=== PATIENT | male | born 1975 | race Caucasian/White ===

== ENCOUNTER 2018-07-26 21:29 | Emergency (ER) | payer OTHER ==
--- NOTE | 2018-07-26 21:32 | PDOC ---
Rapid Medical Evaluation Time Seen by Provider: 07/26/18 21:32 Medical Evaluation: Allergies Allergy/AdvReac Type Severity Reaction Status Date / Time No Known Allergies Allergy Verified 05/08/14 18:19 07/26/18 21:32 I have performed a brief in-person evaluation of this patient. The patient presents with a chief complaint of: Elevated BP today at home, was 164/110. H/o HTN, on meds and compliant per pt. Was having tingling to chest/ LUE today and so took BP at home. No recent change to meds Pertinent physical exam findings:Well ching and in NAD w/ BP of 157/91 I have ordered the following:ekg The patient will proceed to the ED for further evaluation. 07/26/18 21:33 Discharge Disposition - Diagnosis Elevated blood pressure reading - Referrals - Patient Instructions - Post Discharge Activity
[2018-07-26 21:35] VITALS: PULSE 76; TEMP 98.4; BMI 28.0
--- NOTE | 2018-07-26 21:48 | PDOC ---
History of Present Illness - General Chief Complaint: Blood Pressure Problem Stated Complaint: HIGH BLOOD PRESURE Time Seen by Provider: 07/26/18 21:32 - History of Present Illness Initial Comments: 43 year old male with two years of chest pain on and off previously evaluated by his PCP and a few ED visits with negative workup presenting with central chest pain and occasional left arm paresthesias for the past few days. States that he checked his pressure as well and it was elevated. He has had these chest pains with elevated blood pressure before. Denies any nausea, vomiting, SOB, fevers, chills, or other symptoms. 07/26/18 22:38 Past History - Past Medical History Allergies/Adverse Reactions: Allergies Allergy/AdvReac Type Severity Reaction Status Date / Time No Known Allergies Allergy Verified 07/26/18 21:33 Home Medications: Ambulatory Orders Amlodipine Besylate 5 mg PO DAILY 07/26/18 Asthma: Yes COPD: No HTN: Yes - Suicide/Smoking/Psychosocial Hx Smoking History: Never smoked Have you smoked in the past 12 months: No Hx Alcohol Use: No Drug/Substance Use Hx: No Substance Use Type: None Review of Systems - Review of Systems Constitutional: No: Chills, Diaphoresis, Fever HEENTM: No: Blurred Vision, Tearing Respiratory: No: Cough, Shortness of Breath Cardiac (ROS): Yes: Chest Pain ABD/GI: No: Diarrhea, Nausea, Vomiting : No: Dysuria, Discharge, Frequency Integumentary: No: Lesions, Lumps, Pallor Neurological: Yes: Paresthesia. No: Numbness Psychiatric: No: Anxiety, Depression Hematologic/Lymphatic: No: Anemia, Blood Clots, Easy Bleeding, Lymph Node Abnormalities *Physical Exam - Vital Signs Last Vital Signs Temp Pulse Resp BP Pulse Ox 98.4 F 76 18 157/91 98 07/26/18 21:33 07/26/18 21:33 07/26/18 21:33 07/26/18 21:33 07/26/18 21:33 - Physical Exam General Appearance: Yes: Nourished, Appropriately Dressed. No: Apparent Distress HEENT: positive: EOMI, BHAVESH, Normal ENT Inspection, Normal Voice Neck: positive: Trachea midline, Normal Thyroid, Supple. negative: Tender, Rigid Respiratory/Chest: positive: Lungs Clear, Normal Breath Sounds. negative: Chest Tender, Respiratory Distress, Accessory Muscle Use Cardiovascular: positive: Regular Rhythm, Regular Rate Gastrointestinal/Abdominal: positive: Normal Bowel Sounds, Flat, Soft. negative : Tender Lymphatic: negative: Adenopathy, Tenderness Musculoskeletal: positive: Normal Inspection. negative: Decreased Range of Motion Extremity: positive: Normal Capillary Refill, Normal Inspection, Normal Range of Motion. negative: Tender, Pelvis Stable Integumentary: positive: Normal Color, Dry, Warm Neurologic: positive: Fully Oriented, Alert, Normal Mood/Affect, Normal Response , Motor Strength 5/5 Moderate Sedation - Procedure Monitoring Vital Signs: Procedure Monitoring Vital Signs Temperature 98.4 F 07/26/18 21:33 Pulse Rate 76 07/26/18 21:33 Respiratory Rate 18 07/26/18 21:33 Blood Pressure 157/91 07/26/18 21:33 O2 Sat by Pulse Oximetry (%) 98 07/26/18 21:33 ED Treatment Course - LABORATORY CBC & Chemistry Diagram: 07/26/18 22:50 07/26/18 22:50 Medical Decision Making - Medical Decision Making 43 year old male with low risk chest pain without EKG changes or lab abnormalities. Pain better with Maalox, Pepcid and toradol. EKG demonstrating rate 68, VT 178, QRS 106, QTc 427, normal axis with S waves in V1-V3 with TWI in III and flattening in AVF all unchanged compared to previous EKG in03/2014. Will DC with PCP and cardiology follow up. 07/26/18 23:11 *DC/Admit/Observation/Transfer Diagnosis at time of Disposition: Elevated blood pressure reading, Chest pain, atypical - Discharge Dispostion Disposition: HOME Condition at time of disposition: Improved Decision to Admit order: No - Referrals Referrals: ON STAFF,NOT [Primary Care Provider] - [facility] [place] [Provider Group] - Patient Instructions Printed Discharge Instructions: DI for High Blood Pressure, DI for Atypical Chest Pain Additional Instructions: Please follow up with your pcp to make a cardiology appointment or you can use our [facility] clinic as well if you don't have a PCP. Please return to the ED if you have any new or concerning symptoms. - Post Discharge Activity
[2018-07-26] MEDS ORDERED: MAG HYDROX/AL HYDROX/SIMETH -MYLANTA- ORAL SUSPENSION PO ONE (22:43)
[2018-07-26] MEDS ORDERED: RANITIDINE HCL 150 MG/10 ML UNIT-DOSE PO ONE (22:43)
[2018-07-26] MEDS ORDERED: RANITIDINE HCL 150 MG TABLET (FP) ONE (22:45)
[2018-07-26] MEDS ORDERED: MAG HYDROX/AL HYDROX/SIMETH 30 ML UNIT-DOSE CUP ONE (22:46)
[2018-07-26 22:59] LABS: BASO % 0.6 % (0-2.0); EOS % 1.5 % (0-4.5); HEMOGLOBIN 16.1 GM/dL (11.7-16.9); LYMPH % 30.1 % (8-40); MCH 32.5 pg (25.7-33.7); MEAN CELL VOLUME 92.8 fl (80-96); MEAN PLT VOLUME 8.8 fl (7.5-11.1); MONO % 9.1 % (3.8-10.2); NEUT % 58.7 % (42.8-82.8); PLATELET COUNT 207 K/MM3 (134-434); RBC 4.96 M/mm3 (4.00-5.60); RDW 13.8 % (11.9-15.9); WHITE BLOOD COUNT 11.5 K/mm3 (4.0-10.0)
[2018-07-26 23:24] LABS: ALBUMIN 4.1 g/dl (3.4-5.0); ALK PHOS 60 U/L (45-117); ANION GAP 6 MMOL/L (8-16); BILIRUBIN,TOTAL 0.2 mg/dL (0.2-1); BLOOD UREA NITROGEN 17 mg/dL (7-18); CALCIUM 8.6 mg/dL (8.5-10.1); CHLORIDE 104 mmol/L (98-107); CO2 28 mmol/L (21-32); CREATININE 1.2 mg/dL (0.55-1.3); GLUCOSE,RANDOM 91 mg/dL (74-106); POTASSIUM 4.1 mmol/L (3.5-5.1); SGOT/AST 19 U/L (15-37); SGPT/ALT 36 U/L (13-61); SODIUM 138 mmol/L (136-145); TOT PROT 7.7 g/dl (6.4-8.2)
--- NOTE | 2018-07-26 23:39 | PDOC ---
Attending Attestation - Resident Resident Name: DmitryMonishaandrew - ED Attending Attestation I have performed the following: I have examined & evaluated the patient, The case was reviewed & discussed with the resident, I agree w/resident's findings & plan - HPI HPI: 07/26/18 23:34 Mr. Shirley is a 43 year old male, with a past medical history significant for HTN, presents with constant central chest pain beginning earlier today. The patient states he has had intermittent central chest pain for the past 3 days, described as burning sensation. However, today the chest pain has become constant prompting the ED visit. The patient also endorses intermittent left arm paresthesias. The patient states his chest pain has been associated with elevated blood pressure in the past, noted his BP earlier today to be elevated as well.. 07/26/18 23:34 - Physicial Exam PE: 07/26/18 23:34 NAD, well appearing, PERRL, EOMI, MMM, nl conjunctiva, anicteric; neck supple. lungs clear, RRR, abdomen soft nontender. WISEMAN x4, no focal neuro deficits. No peripheral edema. normal color for ethnicity, WWP. - Medical Decision Making 07/26/18 23:33 See HPI for details DDx chest pain: ACS, coronary vasospasm, NSTEMI, arrhythmia, unstable angina, PE , dissection, PUD, esophageal spasm, GERD, gastritis, costochondritis, pneumonia , pleurisy, pericarditis/myocarditis. dehydration, electrolyte/metabolic derangements. clinically doubt PE or dissection with history and exam. PERC's neg, so doubt PE. Vital signs reviewed, mildly hypertensive; NAD Prior notes reviewed, including admissions, discharges and consultations. laboratory results and imaging reviewed, basic labs and lytes wnl, notable for neg trop, reassuring. EKG normal sinus rhythm, no interval abnormalities, narrow QRS, ST and T wave segments and morphology normal. Nonspecific T wave abnormalities in III, AVF - similar to prior EKGs. ED course: no acute events, comfortable, given GI cocktail with relief. one trop sufficient as this is ongoing issue and doubt cardiac with neg value. ECG nonischemic, similar to old EKGs. burning sensation, improving, reassuring signs. given GI cocktail with relief has PCP, told to f/u and to encourage cards eval as outpatient for the stress testing that was discussed previously. Dispo: Pt informed of my clinical impression, treatment recommendations and disposition plan. All questions answered to patient's satisfaction and expressed understanding and comfort with this. Reasons for returning to the ED sooner discussed with the patient otherwise, follow up with primary care physician. At the time of discharge, the patient is alert, clinically improved, tolerating po and verbalizes understanding of instructions. Patient does not suffer from an acute life-threatening medical condition at this time he is safe for outpatient follow-up. 07/26/18 23:38 07/27/18 02:00
[2018-07-26] MEDS ORDERED: KETOROLAC TROMETHAMINE 30 MG/1 ML VIAL IM ONE (23:49)
[2018-07-26] MEDS ORDERED: KETOROLAC TROMETHAMINE 30 MG/1 ML VIAL ONE (23:55)
[2018-07-27 00:02] VITALS: BP 157/97
--- NOTE | 2018-07-27 22:03 | EKG ---
Test Reason : Blood Pressure : / mmHG Vent. Rate : 068 BPM Atrial Rate : 068 BPM P-R Int : 178 ms QRS Dur : 106 ms QT Int : 402 ms P-R-T Axes : 007 048 003 degrees QTc Int : 427 ms NORMAL SINUS RHYTHM POSSIBLE ANTERIOR INFARCT , AGE UNDETERMINED ABNORMAL ECG WHEN COMPARED WITH ECG OF 09-MAY-2014 10:03, NO SIGNIFICANT CHANGE WAS FOUND Confirmed by ANDERS NOLAND MD ([id number]) on 07/27/2018 10:03:16 PM Referred By: Confirmed By:ANDERS NOLAND MD
== END 2018-07-27 00:02 | disposition home or self-care (01) ==
LOC: JER 21:29
PROC: 3E0233Z Introduction of Anti-inflammatory into Muscle, Percutaneous Approach (ICD-10-PCS; principal; 2018-07-26)
DX: I10 Essential (primary) hypertension (principal); R07.9 Chest pain, unspecified
CPT/HCPCS: 36415; 71045-TC-FY; 80053; 84484; 85025; 93005; 93010; 96372; 99282-25

== ENCOUNTER 2018-07-28 20:40 | Emergency (ER) | payer OTHER ==
[2018-07-28 20:52] VITALS: PULSE 76; TEMP 98.5; BMI 28.0
--- NOTE | 2018-07-28 21:43 | PDOC ---
History of Present Illness - General Chief Complaint: Blood Pressure Problem Stated Complaint: HIGH BLOOD PRESSURE Time Seen by Provider: 07/28/18 21:43 Past History - Past Medical History Allergies/Adverse Reactions: Allergies Allergy/AdvReac Type Severity Reaction Status Date / Time No Known Allergies Allergy Verified 07/26/18 21:33 Home Medications: Ambulatory Orders Amlodipine Besylate 5 mg PO DAILY 07/26/18 Asthma: Yes COPD: No HTN: Yes - Suicide/Smoking/Psychosocial Hx Smoking History: Never smoked Have you smoked in the past 12 months: No Information on smoking cessation initiated: No Hx Alcohol Use: No Drug/Substance Use Hx: No Substance Use Type: None *Physical Exam - Vital Signs Last Vital Signs Temp Pulse Resp BP Pulse Ox 98.5 F 76 20 169/107 H 98 07/28/18 20:45 07/28/18 20:45 07/28/18 20:45 07/28/18 20:45 07/28/18 20:45 Moderate Sedation - Procedure Monitoring Vital Signs: Procedure Monitoring Vital Signs Temperature 98.5 F 07/28/18 20:45 Pulse Rate 76 07/28/18 20:45 Respiratory Rate 20 07/28/18 20:45 Blood Pressure 169/107 H 07/28/18 20:45 O2 Sat by Pulse Oximetry (%) 98 07/28/18 20:45 *DC/Admit/Observation/Transfer - Referrals Referrals: Duke Rowley [Primary Care Provider] - - Patient Instructions - Post Discharge Activity
--- NOTE | 2018-07-28 22:14 | PDOC ---
Attending Attestation - HPI HPI: 07/28/18 23:46 The patient is a 43 year old male, with a significant past medical history of HTN, who presents to the emergency department today complaining of 3 days intermittent, burning, chest pain beginning this morning. The patient states today the chest pain is now constant. The patient notes left arm tingling. The patient denies shortness of breath, headache and dizziness. Denies fever, chills, nausea, vomit, diarrhea and constipation. Denies dysuria, frequency, urgency and hematuria. Allergies: NKA Social history: No reported PCP: Dr. Rowley - Physicial Exam PE: 07/28/18 23:57 GENERAL: Well-appearing, well-nourished. No apparent distress. HEENT: Normocephalic, atraumatic. PERRL, EOM intact. No JVD. CARDIOVASCULAR: Normal S1, S2. Regular rate and rhythm. PULMONARY: Clear to auscultation bilaterally. ABDOMEN: Soft, non-distended, non-tender. EXTREMITIES: Normal ROM in all four extremities. No gross deformities. SKIN: Warm, dry. No rash NEUROLOGICAL: No focal neurological deficits. <Tricia Gurrola - Last Filed: 07/28/18 23:57> - Resident Resident Name: Kem Ritchie - ED Attending Attestation I have performed the following: I have examined & evaluated the patient, The case was reviewed & discussed with the resident, I agree w/resident's findings & plan, Exceptions are as noted - Medical Decision Making 07/29/18 00:30 pt s ekg is NSR @ 66 bpm, no wt elevation or depression, there is inverted t wave in III, first trop is negative 07/29/18 00:43 pt was concerned because his blood pressure was elevated again today and he had left shoulder pain that resolved after thirst minutes 07/29/18 01:31 we did not give him any additional meds for the elevated BP and it came down to 131/89 -he had 2 negative troponins -he has no headache and no symptoms at thi time and will be discharged home -his PCP is in [facility] and he will follow up with him this week <Cindi Suazo - Last Filed: 07/29/18 01:36> Attestations - Attestations 07/28/18 23:46 Documentation prepared by Tricia Gurrola, acting as medical interpreter for Cindi Suazo MD. <Tricia Gurrola - Last Filed: 07/28/18 23:57>
[2018-07-28 22:23] LABS: BASO % 0.5 % (0-2.0); HEMATOCRIT 44.9 % (35.4-49); HEMOGLOBIN 15.7 GM/dL (11.7-16.9); LYMPH % 19.5 % (8-40); MCH 32.7 pg (25.7-33.7); MCHC 34.9 g/dl (32.0-35.9); MEAN CELL VOLUME 93.5 fl (80-96); MEAN PLT VOLUME 8.9 fl (7.5-11.1); MONO % 7.4 % (3.8-10.2); NEUT % 71.6 % (42.8-82.8); PLATELET COUNT 200 K/MM3 (134-434); RDW 13.9 % (11.9-15.9); WHITE BLOOD COUNT 12.6 K/mm3 (4.0-10.0)
[2018-07-28 22:42] LABS: ALBUMIN 4.4 g/dl (3.4-5.0); ALK PHOS 58 U/L (45-117); ANION GAP 9 MMOL/L (8-16); BILIRUBIN,TOTAL 0.3 mg/dL (0.2-1); BLOOD UREA NITROGEN 19 mg/dL (7-18); CHLORIDE 101 mmol/L (98-107); CO2 31 mmol/L (21-32); GLUCOSE,RANDOM 97 mg/dL (74-106); N-TERMINAL BNP < 5.0 pg/ml (5-125); POTASSIUM 3.9 mmol/L (3.5-5.1); SGOT/AST 12 U/L (15-37); SGPT/ALT 32 U/L (13-61); SODIUM 140 mmol/L (136-145); TOT PROT 7.7 g/dl (6.4-8.2)
--- NOTE | 2018-07-28 22:47 | PDOC ---
History of Present Illness - General Chief Complaint: Blood Pressure Problem Stated Complaint: HIGH BLOOD PRESSURE History Source: Patient Exam Limitations: No Limitations - History of Present Illness Initial Comments: 07/28/18 22:18 43 yo male pmh of HTN presents to the ED for elevated blood pressure presents to the ED with elevated BP today. Of note, pt came to the ED 2 days ago with CP and elevated BP, trops neg and ekg normal. Pt states today while eating dinner he noted sudden onset blurry vision and OHARA with left shoulder pain, checked his pressure and found to be 180s/110s. The blurry vision and OHARA subsided 30 min after onset, currently patient has no complaints other than left shoulder pain, denies CP, SOB, abdominal pain, back pain, new stress at home, current OHARA, LOC, N/V/F/C, weakness or sensory changes on 1 side of his body. Pt has not followed up with PCP since last ED visit to discuss elevated BP. Past History - Past Medical History Allergies/Adverse Reactions: Allergies Allergy/AdvReac Type Severity Reaction Status Date / Time No Known Allergies Allergy Verified 07/26/18 21:33 Home Medications: Ambulatory Orders Amlodipine Besylate 5 mg PO DAILY 07/26/18 Asthma: Yes COPD: No HTN: Yes - Suicide/Smoking/Psychosocial Hx Smoking History: Never smoked Have you smoked in the past 12 months: No Information on smoking cessation initiated: No Hx Alcohol Use: No Drug/Substance Use Hx: No Substance Use Type: None Review of Systems - Review of Systems Constitutional: No: Chills, Fever HEENTM: Yes: Other (resolved OHARA). No: Blurred Vision (resolved) Respiratory: No: Shortness of Breath, Wheezing Cardiac (ROS): Yes: Other (elevated BP at home). No: Chest Pain, Edema, Lightheadedness, Palpitations ABD/GI: No: Constipated, Diarrhea, Nausea, Vomiting : No: Frequency, Flank Pain Musculoskeletal: No: Back Pain, Muscle Weakness Neurological: No: Headache (resolved), Numbness, Paresthesia, Weakness *Physical Exam - Vital Signs Last Vital Signs Temp Pulse Resp BP Pulse Ox 98.5 F 76 20 169/107 H 98 07/28/18 20:45 07/28/18 20:45 07/28/18 20:45 07/28/18 20:45 07/28/18 20:45 - Physical Exam General Appearance: Yes: Nourished, Appropriately Dressed. No: Apparent Distress HEENT: positive: EOMI, BHAVESH. negative: Photophobia Neck: positive: Supple Respiratory/Chest: positive: Lungs Clear, Normal Breath Sounds. negative: Crackles, Rales, Rhonchi, Stridor, Wheezing Cardiovascular: positive: Regular Rhythm, Regular Rate, S1, S2. negative: Edema , JVD, Murmur Vascular Pulses: Dorsalis-Pedis (R): 4+, Doralis-Pedis (L): 4+ Gastrointestinal/Abdominal: positive: Flat, Soft. negative: Pulsatile Mass, Distended, Guarding, Rebound, Tenderness Extremity: positive: Normal Capillary Refill, Normal Inspection Integumentary: positive: Normal Color, Dry, Warm Neurologic: positive: health record technician II-XII NML intact, Fully Oriented, Alert, Normal Mood/ Affect, Normal Response, Motor Strength 5/5, Finger to Nose (normal). negative : Facial Droop, Sensory Deficit, Confused, Disoriented Moderate Sedation - Procedure Monitoring Vital Signs: Procedure Monitoring Vital Signs Temperature 98.5 F 07/28/18 20:45 Pulse Rate 76 07/28/18 20:45 Respiratory Rate 20 07/28/18 20:45 Blood Pressure 169/107 H 07/28/18 20:45 O2 Sat by Pulse Oximetry (%) 98 07/28/18 20:45 ED Treatment Course - LABORATORY CBC & Chemistry Diagram: 07/28/18 21:46 07/28/18 22:10 Medical Decision Making - Medical Decision Making 07/28/18 23:59 43 yo male presents to the ED after finding elevated BP at home with associated OHARA, blurred vision in both eyes and left shoulder pain which resolved 30 min after episode. Pt resting comfortably in bed, NAD, no current complaints, neuro exam normal, no CP or SOB EKG NSR, no st changes Labs: CBC and CMP wnl 1st trop neg, second pending BP on arrival WNL and recheck at bedside 131/89 Pt recently seen in the ED for elevated pressure with negative cardiac work up Will send 2nd trop 07/29/18 01:19 2nd trop negative Pt continues to rest comfortably without complaints and BP WNL DC home with PCP follow up *DC/Admit/Observation/Transfer Diagnosis at time of Disposition: Elevated blood pressure reading - Discharge Dispostion Disposition: HOME Condition at time of disposition: Good Decision to Admit order: No - Referrals Referrals: Duke Rowley [Primary Care Provider] - - Patient Instructions Printed Discharge Instructions: DI for High Blood Pressure, How to Monitor Your Blood Pressure at Home Additional Instructions: Please see your Primary Doctor within the next 48 hours to discuss multiple elevated blood pressure readings at home. Continue taking your medications as prescribed. Return to the ER for new or concerning symptoms including but not limited to: severe chest pain, severe headaches, weakness or sensory changes on 1 side of your body. Thank you - Post Discharge Activity
[2018-07-28 23:55] VITALS: BP 131/89
--- NOTE | 2018-07-29 09:42 | EKG ---
Test Reason : Blood Pressure : / mmHG Vent. Rate : 066 BPM Atrial Rate : 066 BPM P-R Int : 164 ms QRS Dur : 092 ms QT Int : 392 ms P-R-T Axes : 013 053 002 degrees QTc Int : 410 ms NORMAL SINUS RHYTHM NORMAL ECG WHEN COMPARED WITH ECG OF 26-JUL-2018 22:52, NO SIGNIFICANT CHANGE WAS FOUND Confirmed by ANDERS NOLAND MD ([id number]) on 07/29/2018 9:42:02 AM Referred By: Confirmed By:ANDERS NOLAND MD
== END 2018-07-29 01:37 | disposition home or self-care (01) ==
LOC: JER 20:40
DX: I10 Essential (primary) hypertension (principal); Z87.19 Personal history of other diseases of the digestive system
CPT/HCPCS: 36415; 71046-TC-FY; 80053; 82550; 83880; 84484; 85025; 93005; 93010; 99283-25

== ENCOUNTER 2020-03-22 00:16 | Inpatient (IN) | payer OTHER ==
--- OUTSIDE RECORDS SUMMARY | 2020-03-22 00:42 | XMS ---
:1975 Author Organization [facility] Support Name Relationship Address Phone [employer] Unavailable [address] [place] [address] [address]AQU[address] [facility] [place] [address] Re-disclosure Warning The records that you are about to access may contain information from federally- assisted alcohol or drug abuse programs. If such information is present, then the following federally mandated warning applies: This information has been disclosed to you from records protected by federal confidentiality rules (42 CFR part 2). The federal rules prohibit you from making any further disclosure of this information unless further disclosure is expressly permitted by the written consent of the person to whom it pertains or as otherwise permitted by 42 CFR part 2. A general authorization for the release of medical or other information is NOT sufficient for this purpose. The Federal rules restrict any use of the information to criminally investigate or prosecute any alcohol or drug abuse patient.The records that you are about to access may contain highly sensitive health information, the redisclosure of which is protected by Article 27-F of the [facility] Public Health law. If you continue you may haveaccess to information: Regarding HIV / AIDS; Provided by facilities licensed or operated by the [facility] Office of Mental Health; or Provided by the [facility] Office for People With Developmental Disabilities. If such information is present, then the following [facility] mandated warning applies: This information has been disclosed to you from confidential records which are protected by state law. State law prohibits you from making any further disclosure of this information without the specific written consent of the person to whom it pertains, or as otherwise permitted by law. Any unauthorized further disclosure in violation of state law may result in a fine or chcf sentence or both. A general authorization for the release of medical or other information is NOT sufficient authorization for further disclosure. Insurance Providers Payer name Policy type Policy ID Covered Covered republican's Policy P mita / Coverage republican ID relationship to Garza Inf ormation type garza TAVO [id number] 400 [employer] NON CAP
[2020-03-22 00:44] VITALS: BMI 28.6
[2020-03-22] MEDS ORDERED: ACETAMINOPHEN 1000 MG/100 ML VIAL (NON FORMULARY) IVPB ONE (00:53)
--- NOTE | 2020-03-22 00:53 | PDOC ---
Attending Attestation - Resident Resident Name: ShimaJean Claude - ED Attending Attestation I have performed the following: I have examined & evaluated the patient, The case was reviewed & discussed with the resident, I agree w/resident's findings & plan - HPI HPI: 03/22/20 01:06 PT AND HIS COME WITH FEVER; RETURNED FROM [place] 19 DAYS AGO HE COMPLAINS OF GENERALIZED WEAKNESS AND FEVER AND PAINS - Physicial Exam PE: 03/22/20 02:31 PT IS FEBRILE HEENT REVEALS NYSTAGMUS WHEN PT LOOKS TO THE RIGHT SIDE. NCAT PERRLA RIGHT SIDE OF LUNG DECREASED BREATH SOUNDS ABD SOFT NT ND NO SWELLING OF LEGS NO FLANK PAIN PT HAS NORMAL SENSORIMOTOR NEURO EXAM - Medical Decision Making 03/22/20 02:31 PT HAS MULTILOBAR PNEUMONIA; WE WILL ADMIT FOR BLOOD CULTURE AND SENSITIVITY RESULTS AND IV THERAPEUTICS FLU NEGATIVE 03/22/20 02:56 PT HAS NORMAL LABS OTHER THAN C-RP AND D DIMER 03/22/20 02:57 FEVER CAME DOWN HE IS 98.6F NOW Discharge - Discharge Information Problems reviewed: Yes Clinical Impression/Diagnosis: Pneumonia Qualifiers: Pneumonia type: due to unspecified organism Laterality: right Lung location: unspecified part of lung Qualified Code(s): J18.9 - Pneumonia, unspecified organism Condition: Fair - Follow up/Referral - Patient Discharge Instructions - Post Discharge Activity
[2020-03-22] MEDS ORDERED: SODIUM CHLORIDE IV ONE (00:55)
[2020-03-22] MEDS ORDERED: ACETAMINOPHEN INJECTION 100 ML IVPB ONE (01:02)
--- NOTE | 2020-03-22 01:08 | PDOC ---
History of Present Illness - General Chief Complaint: SIRS, Suspected/Possible Stated Complaint: FEVER Time Seen by Provider: 03/22/20 00:43 - History of Present Illness Initial Comments: 03/22/20 01:22 44 yo male with pmh htn and asthma presents to ED for flu like sxs for the past 6 days. Pt has recently been to [place] with his who is also sick. Pt explains he was having nose congestoin and chills starting 6 days ago and then about 4 days ago started feeling fevers, cough and SOB. Pt went to [facility] 4 days ago and had rapid covid which was negative waiting for other COVID results. Pt explains he has associated generalized weakness, lightheadedness, nonproductive cough, SOB, and midsternal chest pain worse with deep breath and cough. Pt does have mild headache but no rigid neck or AMS. PT does also have decreased taste and smell. Pt denies n/v/d/c, dysuria, urinary frequency, or rash. Pt did recently travel to [place] about 19 days ago but no calf tenderness and does not believe he has any sick contacts. PMH: htn asthma meds: denies allergies: denies Social: social alcohol; dneis tobacco and drugs PCP: Dr. Rowley Number: [phone] Past History - Medical History Allergies/Adverse Reactions: Allergies Allergy/AdvReac Type Severity Reaction Status Date / Time No Known Allergies Allergy Verified 03/22/20 00:45 Home Medications: Ambulatory Orders Amlodipine Besylate 5 mg PO DAILY 07/26/18 Asthma: Yes COPD: No HTN: Yes - Psycho-Social/Smoking History Smoking History: Never smoked Have you smoked in the past 12 months: No Information on smoking cessation initiated: No - Substance Abuse Hx (Audit-C & DAST Scrn) How often the patient has a drink containing alcohol: Monthly or less Number of drinks the patient has on a typical day: 1 or 2 How often the patient has six or more drinks on one occasion: Never Score: In Men: 4 or > Positive; In Women: 3 or > Positive: 1 Screen Result (Pos requires Nsg. Audit-10AR): Negative In the last yr the pt used illegal drug/Rx for NonMed reason: No Score: Yes response is considered Positive: 0 Screen Result (Positive result requires Nsg. DAST-10): Negative Review of Systems - Review of Systems Comments:: 03/22/20 02:43 GENERAL/CONSTITUTIONAL:Fevers Chills and generalized weakness. HEAD, EYES, EARS, NOSE AND THROAT: No change in vision. No ear pain or discharge. No sore throat. CARDIOVASCULAR: Chest pain and SOB. RESPIRATORY:Cough. No wheezing or hemoptysis. GASTROINTESTINAL: No nausea, vomiting, diarrhea or constipation. GENITOURINARY: No dysuria, frequency, or change in urination. MUSCULOSKELETAL: Muscle aches SKIN: No rash NEUROLOGIC: Headache. NO vertigo, loss of consciousness, or change in strength/sensation. ENDOCRINE: No increased thirst. No abnormal weight change HEMATOLOGIC/LYMPHATIC: No anemia, easy bleeding, or history of blood clots. ALLERGIC/IMMUNOLOGIC: No hives or skin allergy. *Physical Exam - Vital Signs Last Vital Signs Temp Pulse Resp BP Pulse Ox 102.6 F H 109 H 18 136/89 96 03/22/20 00:20 03/22/20 00:20 03/22/20 00:20 03/22/20 00:20 03/22/20 00:20 - Physical Exam 03/22/20 02:45 GENERAL: Awake, alert, and fully oriented, in no acute distress HEAD: No signs of trauma, normocephalic, atraumatic EYES: EOMI, sclera anicteric, conjunctiva clear ENT: Auricles normal inspection, hearing grossly normal, nares patent, oropharynx clear without exudates. Moist mucosa NECK: Normal ROM, supple, no lymphadenopathy, JVD, or masses LUNGS: bilateral rhonchi. HEART: Regular rate and rhythm, normal S1 and S2, no murmurs, rubs or gallops, peripheral pulses normal and equal bilaterally. ABDOMEN: Soft,normoactive bowel sounds, mild tenderness to palpation on llq. EXTREMITIES : Normal inspection, Normal range of motion, no edema. No clubbing or cyanosis. NEUROLOGICAL: Cranial nerves II through XII grossly intact. Normal speech, normal gait, no focal sensorimotor deficits SKIN: Warm, Dry, normal turgor, no rashes or lesions noted Heart Score/ECG Review - ECG Impressions Comment:: 03/22/20 03:32 Normal sinus rhythm at 96 bpm T wave inversion on III. Flattening on aVF. Normal axis NOrmal WI, QRS, and QT ED Treatment Course - LABORATORY CBC & Chemistry Diagram: 03/22/20 01:15 03/22/20 01:14 Medical Decision Making - Medical Decision Making 03/22/20 01:26 44 yo male coming in for flu like symptoms with fever chills muscle pain, headac he and nasal congesiton Will do septic work up COVID and flu 03/22/20 02:36 Pt CXR showed multilobar pna. Pt was SpO2 walk which desaturated down to 93%. Pt feels better Will give pt 1g Ceftriaxone and 500 Azithromycin Will admit for multilobar PNA. 03/22/20 03:19 PT HPI, ED course and plan was discussed with Resident Dr. Griffith. Pt will be admitted to Dr. Alberts. Discharge - Discharge Information Problems reviewed: Yes Clinical Impression/Diagnosis: Pneumonia Qualifiers: Pneumonia type: due to unspecified organism Laterality: right Lung location: unspecified part of lung Qualified Code(s): J18.9 - Pneumonia, unspecified organism Condition: Fair - Admission Yes - Follow up/Referral - Patient Discharge Instructions - Post Discharge Activity
[2020-03-22 01:48] LABS: BASO % 0.3 % (0-2.0); EOS % 0.1 % (0-4.5); HEMOGLOBIN 15.2 GM/dL (11.7-16.9); LYMPH % 21.2 % (8-40); MCH 31.7 pg (25.7-33.7); MCHC 34.6 g/dl (32.0-35.9); MEAN CELL VOLUME 91.4 fl (80-96); MEAN PLT VOLUME 9.7 fl (7.5-11.1); MONO % 9.1 % (3.8-10.2); NEUT % 69.3 % (42.8-82.8); PLATELET COUNT 134 K/MM3 (134-434); RBC 4.81 M/mm3 (4.00-5.60); RDW 13.7 % (11.9-15.9); WHITE BLOOD COUNT 6.2 K/mm3 (4.0-10.0)
[2020-03-22 01:50] LABS: PH,URINE 6.5 (5.0-8.0); URINE APPEARANCE CLEAR; URINE BILIRUBIN NEGATIVE (NEGATIVE); URINE COLOR YELLOW; URINE GLUCOSE (UA) NEGATIVE (NEGATIVE); URINE KETONE NEGATIVE (NEGATIVE); URINE LEUK ESTERASE NEGATIVE (NEGATIVE); URINE NITRITE NEGATIVE (NEGATIVE); URINE PROTEIN NEGATIVE (NEGATIVE); URINE UROBILINOGEN 0.2 mg/dL (0.2-1.0)
[2020-03-22 01:55] LABS: INR 1.1 (0.83-1.09); PROTHROMBIN TIME (PATIENT) 13.5 SEC (9.7-13.0)
[2020-03-22 01:58] LABS: ACTIVATED PTT 30.3 SECONDS (25.2-36.5)
[2020-03-22 02:00] LABS: POTASSIUM 3.9 mmol/L (3.5-5.1)
[2020-03-22 02:02] LABS: CALCIUM 8.5 mg/dL (8.5-10.1)
[2020-03-22 02:03] LABS: ALBUMIN 3.6 g/dl (3.4-5.0); BLOOD UREA NITROGEN 12.9 mg/dL (7-18)
[2020-03-22 02:06] LABS: CREATININE 1.1 mg/dL (0.55-1.3)
[2020-03-22 02:07] LABS: BILIRUBIN,TOTAL 0.2 mg/dL (0.2-1)
[2020-03-22 02:08] LABS: TOT PROT 7.2 g/dl (6.4-8.2)
[2020-03-22] MEDS ORDERED: CEFTRIAXONE 1,000 MG in DEXTROSE 5%-WATER - 50 ML IVPB ONE (02:36)
[2020-03-22] MEDS ORDERED: AZITHROMYCIN 500 MG TABLET PO ONE (02:36)
[2020-03-22 02:37] LABS: LDH 190 U/L (87-246)
[2020-03-22] MEDS ORDERED: cefTRIAXone SODIUM 1 GM VIAL ONE ×2 (02:45→21:18)
[2020-03-22] MEDS ORDERED: AZITHROMYCIN 250 MG TABLET ONE (02:45)
--- OUTSIDE RECORDS SUMMARY | 2020-03-22 03:19 | XMS ---
:1975 Author Organization [facility] Support Name Relationship Address Phone [employer] Unavailable [address] [place] [address] [address] [place] [address] Re-disclosure Warning The records that [...] is protected by Article 27-F of the [facility] Public Health law. If you continue you may haveaccess to information: Regarding HIV / AIDS; Provided by facilities licensed or operated by the [facility] Office of Mental Health; or Provided by the [facility] Office for People With Developmental Disabilities. If such information is present, then the following [facility] mandated warning applies: This information has been [...] law may result in a fine or fdc sentence or both. A general authorization for the release of medical or other information is NOT sufficient authorization for further disclosure. Insurance Providers Payer name Policy type Policy ID Covered Covered republican's Policy P mita / Coverage republican ID relationship to [employer]mation type garza TAVO [id number] 400 HEALTH NON CAP
--- NOTE | 2020-03-22 04:55 | PN ---
Teaching Attending Note Name of Resident: Daniela Real ATTENDING PHYSICIAN STATEMENT I saw and evaluated the patient. I reviewed the resident's note and discussed the case with the resident. I agree with the resident's findings and plan as documented. SUBJECTIVE: 44yoM with history of HTN and asthma who presents with flu-like symptoms x6 days. Patient reports he spent a week in [place] visiting family and returned 03/04, no known sick contacts at the time. He was in contact with a friend about 2 weeks ago who later tested positive for COVID. Complains of fevers, cough, SOB that worsened about 4 days ago. He was tested for COVID 4 days prior to presentation at an urgent care and was negative but symptoms now progressive with generalized weakness, lightheadedness, and midsternal chest pain exacerbated by cough and deep breaths. Endorses decreased taste and smell. His has similar but milder symptoms. Patient was febrile and tachycardic in the ED. Labs unremarkable with exception of Ddimer 1086, CRP 2.7. LFTs, LDH, ferritin, and WBC within normal. CXR showed bilateral infiltrates. COVID PCR pending, flu negative. Patient received ceftriaxone and azithromycin. OBJECTIVE: Vital Signs - 24 hr 03/22/20 03/22/20 00:20 02:57 Temperature 102.6 F H 98.6 F Pulse Rate 109 H Pulse Rate [ 91 H Left] Respiratory 18 20 Rate Blood Pressure 136/89 Blood Pressure 122/86 [Left Arm] O2 Sat by Pulse 96 96 Oximetry (%) EXAM Gen: awake, alert, NAD HEENT: NC/AT CV: RRR, mildly tachycardic. No MRG appreciated Resp: Diminished bilateral bases, no wheezing/rales/rhonchi appreciated Abd: Soft, NT, ND Ext: no edema Derm: no rash Psych: AOx3 Laboratory Results - last 24 hr 03/22/20 03/22/20 03/22/20 01:14 01:14 01:14 WBC RBC Hgb Hct MCV MCH MCHC RDW Plt Count MPV Absolute Neuts (auto) Neutrophils % Lymphocytes % Monocytes % Eosinophils % Basophils % Nucleated RBC % PT with INR INR PTT (Actin FS) D-Dimer Sodium 137 Potassium 3.9 Chloride 103 Carbon Dioxide 27 Anion Gap 7 L BUN 12.9 Creatinine 1.1 Est GFR (CKD-EPI)AfAm 95.46 Est GFR (CKD-EPI)NonAf 82.36 Random Glucose 93 Lactic Acid Calcium 8.5 Ferritin 221.5 Total Bilirubin 0.2 AST 24 ALT 37 Alkaline Phosphatase 56 LD Total 190 Creatine Kinase 63 Troponin I < 0.02 C-Reactive Protein 2.7 H Total Protein 7.2 Albumin 3.6 Urine Color Yellow Urine Appearance Clear Urine pH 6.5 Ur Specific Lamont 1.011 Urine Protein Negative Urine Glucose (UA) Negative Urine Ketones Negative Urine Blood Negative Urine Nitrite Negative Urine Bilirubin Negative Urine Urobilinogen 0.2 Ur Leukocyte Esterase Negative Influenza A (Rapid) Influenza B (Rapid) 03/22/20 03/22/20 03/22/20 01:14 01:15 01:15 WBC 6.2 RBC 4.81 Hgb 15.2 Hct 44.0 MCV 91.4 MCH 31.7 MCHC 34.6 RDW 13.7 Plt Count 134 D MPV 9.7 Absolute Neuts (auto) 4.3 Neutrophils % 69.3 Lymphocytes % 21.2 Monocytes % 9.1 Eosinophils % 0.1 D Basophils % 0.3 Nucleated RBC % 0 PT with INR 13.50 H INR 1.10 H PTT (Actin FS) 30.3 D-Dimer Sodium Potassium Chloride Carbon Dioxide Anion Gap BUN Creatinine Est GFR (CKD-EPI)AfAm Est GFR (CKD-EPI)NonAf Random Glucose Lactic Acid 1.2 Calcium Ferritin Total Bilirubin AST ALT Alkaline Phosphatase LD Total Creatine Kinase Troponin I C-Reactive Protein Total Protein Albumin Urine Color Urine Appearance Urine pH Ur Specific Lamont Urine Protein Urine Glucose (UA) Urine Ketones Urine Blood Urine Nitrite Urine Bilirubin Urine Urobilinogen Ur Leukocyte Esterase Influenza A (Rapid) Influenza B (Rapid) 03/22/20 03/22/20 01:15 01:23 WBC RBC Hgb Hct MCV MCH MCHC RDW Plt Count MPV Absolute Neuts (auto) Neutrophils % Lymphocytes % Monocytes % Eosinophils % Basophils % Nucleated RBC % PT with INR INR PTT (Actin FS) D-Dimer 1086 H Sodium Potassium Chloride Carbon Dioxide Anion Gap BUN Creatinine Est GFR (CKD-EPI)AfAm Est GFR (CKD-EPI)NonAf Random Glucose Lactic Acid Calcium Ferritin Total Bilirubin AST ALT Alkaline Phosphatase LD Total Creatine Kinase Troponin I C-Reactive Protein Total Protein Albumin Urine Color Urine Appearance Urine pH Ur Specific Lamont Urine Protein Urine Glucose (UA) Urine Ketones Urine Blood Urine Nitrite Urine Bilirubin Urine Urobilinogen Ur Leukocyte Esterase Influenza A (Rapid) Negative Influenza B (Rapid) Negative Imaging, EKG reviewed in chart ASSESSMENT AND PLAN: 44yoM with history of HTN and asthma who presents with flu-like symptoms x6 days, found to have bilateral pneumonia on CXR and strong suspicion for COVID-19 infection. Sepsis secondary to bilateral pneumonia; r/o COVID-19 Does not have typical lab findings for COVID pneumonia although symptoms and CXR are suspicious Currently on room air Flu negative - continue empiric ceftriaxone/azithromycin - sputum culture, urine strep/legionella - trend inflammatory markers - f/u COVID HTN: continue home meds DVT ppx: Lovenox subq
--- NOTE | 2020-03-22 05:03 | HP ---
CHIEF COMPLAINT: fever PCP: Dr. Rowley HISTORY OF PRESENT ILLNESS: Darlin is a 44 yo with PMH hypertension and asthma who presents with 1 week history of fever, body aches, and dyspnea. Patient states symptoms began 7 days ago with generalized body aches. Approx 4 days ago he became febrile, and experienced increased dyspnea while walking around the home. He states that he developed a cough, which is nonproductive, and states that within the past 2 days he has developed chest pain associated with the cough. Chest pain located over the midsternal region, does not radiate, rates pain as 8/10 at its worst. Of note he states he recently got back from a trip to [place], where he visited family -- no sick contacts in [place]. He also states that after returning to the [place] he met up with a family friend (~1 week ago), who was later diagnosed with COVID. His is also experiencing similar symptoms to him. ER course was notable for: - Vitals on arrival to ED: t 102.6, HR 109, BP 136/89, RR 18, O2 sat 96 on room air - Labs notable for elevated d-dimer to 1086 and elevated CRP 2.7 - CXR: notable for multilobar pneumonia on the R side, with possible consolidation on the L side as well - Influenza A and B negative Recent Travel: [place] PAST MEDICAL HISTORY: Hypertension Asthma PAST SURGICAL HISTORY: None Social History: Smoking:Denies Alcohol:Socially Drugs:Denies Allergies No Known Allergies Allergy (Verified 03/22/20 00:45) HOME MEDICATIONS: Home Medications Medication Instructions Recorded Amlodipine Besylate 5 mg PO DAILY 07/26/18 REVIEW OF SYSTEMS SEE HPI PHYSICAL EXAMINATION Vital Signs - 24 hr 03/22/20 03/22/20 00:20 02:57 Temperature 102.6 F H 98.6 F Pulse Rate 109 H Pulse Rate [ 91 H Left] Respiratory 18 20 Rate Blood Pressure 136/89 Blood Pressure 122/86 [Left Arm] O2 Sat by Pulse 96 96 Oximetry (%) GENERAL: Awake, alert, and fully oriented, in no acute distress. HEAD: Normal with no signs of trauma. LUNGS: Decreased breath sounds at the base of the right lung, with crackles. No accessory muscle use. HEART: Regular rate and rhythm, normal S1 and S2 without murmur ABDOMEN: Soft, nontender, not distended, normoactive bowel sounds LOWER EXTREMITIES: 2+ pulses, warm, well-perfused. No calf tenderness. No peripheral edema. NEUROLOGICAL: Cranial nerves II-XII intact. Normal speech. PSYCHIATRIC: Cooperative. Good eye contact. Appropriate mood and affect. SKIN: Warm, dry, normal turgor, no rashes or lesions noted, normal capillary refill. Laboratory Results - last 24 hr 03/22/20 03/22/20 03/22/20 01:14 01:14 01:14 WBC RBC Hgb Hct MCV MCH MCHC RDW Plt Count MPV Absolute Neuts (auto) Neutrophils % Lymphocytes % Monocytes % Eosinophils % Basophils % Nucleated RBC % PT with INR INR PTT (Actin FS) D-Dimer Sodium 137 Potassium 3.9 Chloride 103 Carbon Dioxide 27 Anion Gap 7 L BUN 12.9 Creatinine 1.1 Est GFR (CKD-EPI)AfAm 95.46 Est GFR (CKD-EPI)NonAf 82.36 Random Glucose 93 Lactic Acid Calcium 8.5 Ferritin 221.5 Total Bilirubin 0.2 AST 24 ALT 37 Alkaline Phosphatase 56 LD Total 190 Creatine Kinase 63 Troponin I < 0.02 C-Reactive Protein 2.7 H Total Protein 7.2 Albumin 3.6 Urine Color Yellow Urine Appearance Clear Urine pH 6.5 Ur Specific Dinosaur 1.011 Urine Protein Negative Urine Glucose (UA) Negative Urine Ketones Negative Urine Blood Negative Urine Nitrite Negative Urine Bilirubin Negative Urine Urobilinogen 0.2 Ur Leukocyte Esterase Negative Influenza A (Rapid) Influenza B (Rapid) 03/22/20 03/22/20 03/22/20 01:14 01:15 01:15 WBC 6.2 RBC 4.81 Hgb 15.2 Hct 44.0 MCV 91.4 MCH 31.7 MCHC 34.6 RDW 13.7 Plt Count 134 D MPV 9.7 Absolute Neuts (auto) 4.3 Neutrophils % 69.3 Lymphocytes % 21.2 Monocytes % 9.1 Eosinophils % 0.1 D Basophils % 0.3 Nucleated RBC % 0 PT with INR 13.50 H INR 1.10 H PTT (Actin FS) 30.3 D-Dimer Sodium Potassium Chloride Carbon Dioxide Anion Gap BUN Creatinine Est GFR (CKD-EPI)AfAm Est GFR (CKD-EPI)NonAf Random Glucose Lactic Acid 1.2 Calcium Ferritin Total Bilirubin AST ALT Alkaline Phosphatase LD Total Creatine Kinase Troponin I C-Reactive Protein Total Protein Albumin Urine Color Urine Appearance Urine pH Ur Specific Dinosaur Urine Protein Urine Glucose (UA) Urine Ketones Urine Blood Urine Nitrite Urine Bilirubin Urine Urobilinogen Ur Leukocyte Esterase Influenza A (Rapid) Influenza B (Rapid) 03/22/20 03/22/20 01:15 01:23 WBC RBC Hgb Hct MCV MCH MCHC RDW Plt Count MPV Absolute Neuts (auto) Neutrophils % Lymphocytes % Monocytes % Eosinophils % Basophils % Nucleated RBC % PT with INR INR PTT (Actin FS) D-Dimer 1086 H Sodium Potassium Chloride Carbon Dioxide Anion Gap BUN Creatinine Est GFR (CKD-EPI)AfAm Est GFR (CKD-EPI)NonAf Random Glucose Lactic Acid Calcium Ferritin Total Bilirubin AST ALT Alkaline Phosphatase LD Total Creatine Kinase Troponin I C-Reactive Protein Total Protein Albumin Urine Color Urine Appearance Urine pH Ur Specific Dinosaur Urine Protein Urine Glucose (UA) Urine Ketones Urine Blood Urine Nitrite Urine Bilirubin Urine Urobilinogen Ur Leukocyte Esterase Influenza A (Rapid) Negative Influenza B (Rapid) Negative ASSESSMENT/PLAN: Darlin is a 44 yo with PMH hypertension and asthma who presents with 1 week history of fever, body aches, and dyspnea, with CXR on admission revealing multilobar pneumonia and COVID markers elevated. #Multilobar pneumonia; r/o COVID - CXR revealing multilobar pneumonia on the R side with possible consolidation on the Left side as well - Recent travel to [place] and contact with friend with known COVID positive - Some COVID markers elevated D-dimer 1086 and CRP 2.7 - Continue Ceftriaxone and Azithromycin - F/u covid - F/u blood cultures - F/u legionella/ strep antigen - Trend D-dimer, ferritin, LDH, CRP - Consider Chest CT - ID consult #Hypertension - Restart home BP med after meds are reconciled DVT prophylaxis: Lovenox 40 sq FEN - No standing fluids - F/u am labs - Low sodium diet Dispo: Med/surg Family Medical History Family History: As Documented Visit type - Emergency Visit Emergency Visit: Yes ED Registration Date: 03/22/20 Care time: The patient presented to the Emergency Department on the above date and was hospitalized for further evaluation of their emergent condition. - New Patient This patient is new to me today: Yes Date on this admission: 03/22/20 - Critical Care Critical Care patient: No ATTENDING PHYSICIAN STATEMENT I saw and evaluated the patient. I reviewed the resident's note and discussed the case with the resident. I agree with the resident's findings and plan as documented. SUBJECTIVE: OBJECTIVE: ASSESSMENT AND PLAN:
[2020-03-22 06:49] LABS: BASO % 0.2 % (0-2.0); EOS % 0.2 % (0-4.5); HEMATOCRIT 41.4 % (35.4-49); HEMOGLOBIN 14.1 GM/dL (11.7-16.9); LYMPH % 24.4 % (8-40); MCH 31.1 pg (25.7-33.7); MEAN CELL VOLUME 91.6 fl (80-96); MEAN PLT VOLUME 9.2 fl (7.5-11.1); MONO % 9.4 % (3.8-10.2); NEUT % 65.8 % (42.8-82.8); PLATELET COUNT 127 K/MM3 (134-434); RBC 4.52 M/mm3 (4.00-5.60); RDW 14.1 % (11.9-15.9); WHITE BLOOD COUNT 5.8 K/mm3 (4.0-10.0)
[2020-03-22 07:06] LABS: POTASSIUM 3.8 mmol/L (3.5-5.1)
[2020-03-22 07:19] LABS: ALBUMIN 3.4 g/dl (3.4-5.0)
[2020-03-22 07:22] LABS: BILIRUBIN,TOTAL 0.6 mg/dL (0.2-1); TOT PROT 6.6 g/dl (6.4-8.2)
[2020-03-22] MEDS ORDERED: ENOXAPARIN NA (PORCINE) 40 MG/0.4 ML DISP.SYRIN SQ ONE (09:08)
[2020-03-22] MEDS ORDERED: ENOXAPARIN NA (PORCINE) 40 MG/0.4 ML DISP.SYRIN SQ SCH (10:00)
--- NOTE | 2020-03-22 13:02 | PN ---
Teaching Attending Note Name of Resident: Willie Chacon ATTENDING PHYSICIAN STATEMENT I saw and evaluated the patient. I reviewed the resident's note and discussed the case with the resident. I agree with the resident's findings and plan as documented. SUBJECTIVE:seen around 8 am Fever this am , has fatigue, cough , no sputum. no CP . mild OHARA . OBJECTIVE: NAD, awake, alert, cooperative CV: RRR, no MRG Lungs: CTAB Abd: soft, NT, ND , NL BS Ext: No edema , or erythema on upper or lower extremities ASSESSMENT AND PLAN: 44 y/o man with h/o Asthma and HTN and recent exposure to COVID patient who presented with cough, fever , and fatigue 1- Sepsis: likely due to pulmonary source. Suspect COVID-19 uin his case given his exposure and the appearance of cxray infiltrates. Of course lobar PNA or atypical PN can't be r/o - cont ceftriaxone and azithro - f/u COVID results - not requiring oxygen at this time and inflammatory markers are normal - If COVID is + , will start full dose AC with eliquis . patient agrees and denies previous h/o of bleed 2- H/o HTN: cont Norvasc 3- H//o Asthma , not active . if needed give inhalers not Nebs awaiting covid results 5= DVT PX : cont lovenox
[2020-03-22] MEDS ORDERED: amLODIPine BESYLATE 5 MG TABLET (FP) PO ONE (13:10)
--- NOTE | 2020-03-22 13:56 | CON.PULM ---
Consult Consult Specialty:: PULM/CCM Referred by:: Hospitalist Reason for Consultation:: SOB - History of Present Illness Chief Complaint: SOB History of Present Illness: 44 M, hypertension and Intermittent asthma. Admitted via the ER due to 1 week of fever, body aches, and dyspnea on exertion. Patient reports travel from [place] 2 weeks ago but reports a sick contact who has COVID19. He lives with his who has remained asymptomatic. Saturation : lowest 96% on RA. D-dimer : 1086 CRP 2.7 CXR: bilateral infiltrates Right > Left COVID19 testing performed at an outside urgent care was apparently (+). - History Source History Provided By: Patient Limitations to Obtaining History: No Limitations - Past Medical History Cardio/Vascular: Yes: HTN Pulmonary: Yes: Asthma Gastrointestinal: Yes: Other (recent R testicular pain of unclear etiology, workup has included US which was unrevealing per patient report) - Past Surgical History Past Surgical History: Yes: None - Alcohol/Substance Use Hx Alcohol Use: No History of Substance Use: reports: None - Smoking History Smoking history: Never smoked Have you smoked in the past 12 months: No - Social History History of Recent Travel: Yes (plane to [place] 2 weeks ago) Home Medications - Allergies Allergies/Adverse Reactions: Allergies Allergy/AdvReac Type Severity Reaction Status Date / Time No Known Allergies Allergy Verified 03/22/20 00:45 - Home Medications Home Medications: Ambulatory Orders Amlodipine Besylate 10 mg PO DAILY 07/26/18 Review of Systems - Review of Systems Constitutional: reports: Chills, Fever, Lethargy, Malaise. denies: Night Sweats, Unintentional Wgt. Loss Eyes: reports: No Symptoms HENT: reports: No Symptoms Neck: reports: No Symptoms Cardiovascular: reports: Shortness of Breath. denies: Chest Pain, Edema, Palpitations Respiratory: reports: Cough, SOB, SOB on Exertion. denies: Hemoptysis, Orthopnea, Snoring, Wheezing Gastrointestinal: reports: No Symptoms Genitourinary: reports: No Symptoms Breasts: reports: No Symptoms Reported Musculoskeletal: reports: No Symptoms Integumentary: reports: No Symptoms Neurological: reports: No Symptoms Endocrine: reports: No Symptoms Hematology/Lymphatic: reports: No Symptoms Psychiatric: reports: No Symptoms Physical Exam Vital Sings: Vital Signs Temperature 98.6 F 03/22/20 02:57 Pulse Rate 77 03/22/20 07:28 Respiratory Rate 18 03/22/20 07:28 Blood Pressure 112/72 03/22/20 07:28 O2 Sat by Pulse Oximetry (%) 97 03/22/20 07:28 Constitutional: Yes: No Distress Eyes: Yes: Conjunctiva Clear, EOM Intact HENT: Yes: Atraumatic, Normocephalic Neck: Yes: Supple, Trachea Midline Cardiovascular: Yes: Regular Rate and Rhythm Respiratory: Yes: Cough, Diminished, Rhonchi. No: Accessory Muscle Use, On Nasal O2, Rales, SOB, SOB on Exertion, Stridor, Tachypnea, Wheezes ...Inspection: Yes: WNL ...Clubbing: No Gastrointestinal: Yes: Normal Bowel Sounds, Soft Renal/: Yes: WNL Musculoskeletal: Yes: WNL Extremities: Yes: WNL Edema: No Peripheral Pulses WNL: Yes Integumentary: Yes: WNL Neurological: Yes: WNL, Alert, Oriented ...Motor Strength: WNL Psychiatric: Yes: WNL, Alert, Oriented Labs: CBC, BMP 03/22/20 06:12 03/22/20 06:12 Imaging - Results Chest X-ray: Report Reviewed, Image Reviewed Problem List - Problems (1) Pneumonia due to COVID-19 virus Code(s): U07.1 - COVID-19; J12.89 - OTHER VIRAL PNEUMONIA (2) Chest pain, atypical Code(s): R07.89 - OTHER CHEST PAIN Assessment/Plan IMP: At present the patient is not hypoxemic and his CRP is only 2.7. He does not me et the criteria for Remdesivir use, Convalescent plasma, or Dexamethasone. PLAN: Can monitor in OBS Monitor Inflammatory markers Would Monitor off ABX for now VTE prophylaxis Low threshold to offer Convalescent Plasma or Remdesivir if he becomes hypoxic or more symptomatic Can use albuterol MDI PRN Monitor off systemic steroids for now unless he develops bronchospasm. Will follow Dr Jackson
[2020-03-22] MEDS: ACETAMINOPHEN 325 MG TABLET (FP) PO PRN (18:13)
--- NOTE | 2020-03-22 18:40 | PN ---
Physical Exam: SUBJECTIVE: Patient seen and examined. No acute events noted. Febrile of 102.6 has resolved. Not c/o sob, just dry cough. Recent travel to [place] and recent positive covid confirmed at urgent care. OBJECTIVE: Vital Signs Period Temp Pulse Resp BP Sys/Aguilar Pulse Ox Last 24 Hr 98.6 F-102.6 F 76-109 18-20 112-136/72-89 96-99 GENERAL: The patient is awake, alert, and fully oriented, in no acute distress. LUNGS: Breath sounds equal, crackles in RUL and slight wheezes noted, cta throughout rest of lung exam. HEART: Regular rate and rhythm, S1, S2 without murmur, rub or gallop. ABDOMEN: Soft, nontender, nondistended. EXTREMITIES: 2+ pulses, warm, well-perfused, no edema. NEUROLOGICAL: Cranial nerves II through XII grossly intact. Normal speech, gait not observed. PSYCH: Normal mood, normal affect. Laboratory Results - last 24 hr 03/22/20 03/22/20 03/22/20 01:14 01:14 01:14 WBC RBC Hgb Hct MCV MCH MCHC RDW Plt Count MPV Absolute Neuts (auto) Neutrophils % Lymphocytes % Monocytes % Eosinophils % Basophils % Nucleated RBC % PT with INR INR PTT (Actin FS) D-Dimer Sodium 137 Potassium 3.9 Chloride 103 Carbon Dioxide 27 Anion Gap 7 L BUN 12.9 Creatinine 1.1 Est GFR (CKD-EPI)AfAm 95.46 Est GFR (CKD-EPI)NonAf 82.36 Random Glucose 93 Lactic Acid Calcium 8.5 Ferritin 221.5 Total Bilirubin 0.2 AST 24 ALT 37 Alkaline Phosphatase 56 LD Total 190 Creatine Kinase 63 Troponin I < 0.02 C-Reactive Protein 2.7 H Total Protein 7.2 Albumin 3.6 Urine Color Yellow Urine Appearance Clear Urine pH 6.5 Ur Specific [place] 1.011 Urine Protein Negative Urine Glucose (UA) Negative Urine Ketones Negative Urine Blood Negative Urine Nitrite Negative Urine Bilirubin Negative Urine Urobilinogen 0.2 Ur Leukocyte Esterase Negative Influenza A (Rapid) Influenza B (Rapid) 03/22/20 03/22/20 03/22/20 01:14 01:15 01:15 WBC 6.2 RBC 4.81 Hgb 15.2 Hct 44.0 MCV 91.4 MCH 31.7 MCHC 34.6 RDW 13.7 Plt Count 134 D MPV 9.7 Absolute Neuts (auto) 4.3 Neutrophils % 69.3 Lymphocytes % 21.2 Monocytes % 9.1 Eosinophils % 0.1 D Basophils % 0.3 Nucleated RBC % 0 PT with INR 13.50 H INR 1.10 H PTT (Actin FS) 30.3 D-Dimer Sodium Potassium Chloride Carbon Dioxide Anion Gap BUN Creatinine Est GFR (CKD-EPI)AfAm Est GFR (CKD-EPI)NonAf Random Glucose Lactic Acid 1.2 Calcium Ferritin Total Bilirubin AST ALT Alkaline Phosphatase LD Total Creatine Kinase Troponin I C-Reactive Protein Total Protein Albumin Urine Color Urine Appearance Urine pH Ur Specific [place] Urine Protein Urine Glucose (UA) Urine Ketones Urine Blood Urine Nitrite Urine Bilirubin Urine Urobilinogen Ur Leukocyte Esterase Influenza A (Rapid) Influenza B (Rapid) 03/22/20 03/22/20 03/22/20 01:15 01:23 06:12 WBC 5.8 RBC 4.52 Hgb 14.1 Hct 41.4 MCV 91.6 MCH 31.1 MCHC 34.0 RDW 14.1 Plt Count 127 L MPV 9.2 Absolute Neuts (auto) 3.8 Neutrophils % 65.8 Lymphocytes % 24.4 Monocytes % 9.4 Eosinophils % 0.2 D Basophils % 0.2 Nucleated RBC % 0 PT with INR INR PTT (Actin FS) D-Dimer 1086 H Sodium Potassium Chloride Carbon Dioxide Anion Gap BUN Creatinine Est GFR (CKD-EPI)AfAm Est GFR (CKD-EPI)NonAf Random Glucose Lactic Acid Calcium Ferritin Total Bilirubin AST ALT Alkaline Phosphatase LD Total Creatine Kinase Troponin I C-Reactive Protein Total Protein Albumin Urine Color Urine Appearance Urine pH Ur Specific [place] Urine Protein Urine Glucose (UA) Urine Ketones Urine Blood Urine Nitrite Urine Bilirubin Urine Urobilinogen Ur Leukocyte Esterase Influenza A (Rapid) Negative Influenza B (Rapid) Negative 03/22/20 03/22/20 03/22/20 06:12 06:12 06:12 WBC RBC Hgb Hct MCV MCH MCHC RDW Plt Count MPV Absolute Neuts (auto) Neutrophils % Lymphocytes % Monocytes % Eosinophils % Basophils % Nucleated RBC % PT with INR INR PTT (Actin FS) D-Dimer 805 H Sodium 138 Potassium 3.8 Chloride 104 Carbon Dioxide 28 Anion Gap 6 L BUN 10.0 Creatinine 1.0 Est GFR (CKD-EPI)AfAm 107.12 Est GFR (CKD-EPI)NonAf 92.42 Random Glucose 92 Lactic Acid Calcium 8.0 L Ferritin 205.6 Total Bilirubin 0.6 AST 21 ALT 34 Alkaline Phosphatase 49 LD Total 165 Creatine Kinase Troponin I C-Reactive Protein 2.4 H Total Protein 6.6 Albumin 3.4 Urine Color Urine Appearance Urine pH Ur Specific [place] Urine Protein Urine Glucose (UA) Urine Ketones Urine Blood Urine Nitrite Urine Bilirubin Urine Urobilinogen Ur Leukocyte Esterase Influenza A (Rapid) Influenza B (Rapid) Active Medications Generic Name Dose Route Start Last Admin Trade Name Freq PRN Reason Stop Dose Admin Acetaminophen 650 mg 03/22/20 17:58 03/22/20 18:13 Tylenol - PO 650 mg Q6H PRN Administration FEVER Amlodipine Besylate 5 mg 03/23/20 10:00 Norvasc - PO DAILY ARLYN Enoxaparin Sodium 40 mg 03/22/20 10:00 03/22/20 09:51 Lovenox - SQ 40 mg DAILY ARLYN Administration Ceftriaxone Sodium 1 gm/ 50 mls @ 100 mls/hr 03/22/20 22:00 Dextrose IVPB 03/23/20 21:59 Q24H ARLYN Azithromycin 250 mg/ Dextrose 250 mls @ 250 mls/hr 03/22/20 22:00 IVPB 03/25/20 22:59 Q24H ARLYN ASSESSMENT/PLAN: 44 y/o man with h/o Asthma and HTN and recent exposure to COVID patient who presented with cough, fever , and fatigue #Sepsis: - Suspect COVID-19 given his exposure and the appearance of cxr infiltrates. Of course lobar PNA or atypical PN can't be r/o - cont ceftriaxone and azithro although unlikely CAP but must cover until positive result - f/u COVID results per nurse pt just came back positive from nasal swab at urgent care - not requiring oxygen at this time and inflammatory markers are normal will hold off on steroids, plasma, remdesivir, etc at this time. - If confirmed COVID is + , will start full dose AC with eliquis. patient agrees and denies previous h/o of bleed - appreciate pulm eval note #H/o HTN: - cont Norvasc #H/o Asthma - not active. - if needed give inhalers not Nebs awaiting covid results DVT PX: continue lovenox Visit type - Emergency Visit Emergency Visit: Yes ED Registration Date: 03/22/20 Care time: The patient presented to the Emergency Department on the above date and was hospitalized for further evaluation of their emergent condition. - New Patient This patient is new to me today: Yes Date on this admission: 03/22/20 - Critical Care Critical Care patient: No - Discharge Referral Referred to [facility] Med P.C.: No ATTENDING PHYSICIAN STATEMENT I saw and evaluated the patient. I reviewed the resident's note and discussed the case with the resident. I agree with the resident's findings and plan as documented. SUBJECTIVE: OBJECTIVE: ASSESSMENT AND PLAN:
[2020-03-22] MEDS ORDERED: DEXTROSE 5%-WATER - 50 ML IVPB ONE (21:18)
[2020-03-22] MEDS: CEFTRIAXONE 1 GM in DEXTROSE 5%-WATER - 50 ML IVPB SCH (22:32)
[2020-03-22] MEDS: ENOXAPARIN NA (PORCINE) 40 MG/0.4 ML DISP.SYRIN SQ SCH (22:33)
[2020-03-22] MEDS: AZITHROMYCIN IVPB 250 MG in DEXTROSE 5%-WATER - 250 ML IVPB SCH (22:33)
[2020-03-23] MEDS: ACETAMINOPHEN 325 MG TABLET (FP) PO PRN (02:33)
[2020-03-23 07:59] LABS: POTASSIUM 3.7 mmol/L (3.5-5.1)
[2020-03-23 08:01] LABS: BASO % 0.5 % (0-2.0); EOS % 0.1 % (0-4.5); HEMATOCRIT 41.4 % (35.4-49); HEMOGLOBIN 14.1 GM/dL (11.7-16.9); LYMPH % 30.3 % (8-40); MCH 30.9 pg (25.7-33.7); MEAN CELL VOLUME 90.9 fl (80-96); NEUT % 62.1 % (42.8-82.8); PLATELET COUNT 125 K/MM3 (134-434); RBC 4.56 M/mm3 (4.00-5.60); RDW 13.9 % (11.9-15.9); WHITE BLOOD COUNT 6.3 K/mm3 (4.0-10.0)
[2020-03-23 08:09] LABS: ALBUMIN 3.3 g/dl (3.4-5.0); BLOOD UREA NITROGEN 11.6 mg/dL (7-18)
[2020-03-23 08:10] LABS: CALCIUM 8.6 mg/dL (8.5-10.1)
[2020-03-23 08:13] LABS: BILIRUBIN,TOTAL 0.6 mg/dL (0.2-1); TOT PROT 6.7 g/dl (6.4-8.2)
--- NOTE | 2020-03-23 09:22 | PN ---
Physical Exam: SUBJECTIVE: Patient seen and examined at bedside. Patient denies any acute overnight events. Still endorses a cough. Feels central pleuritic chest tightness whenever he coughs. Endorses some mild diaphoresis at night. Denies acute overnight events. OBJECTIVE: Vital Signs Period Temp Pulse Resp BP Sys/Aguilar Pulse Ox Last 24 Hr 98.8 F-100.9 F 73-94 18-20 101-134/66-79 94-99 GENERAL: The patient is awake, alert, and fully oriented, in no acute distress. HEAD: Normal with no signs of trauma. LUNGS: Crackles heard in RLL HEART: Regular rate and rhythm, S1, S2 without murmur, rub or gallop. ABDOMEN: Soft, nontender, nondistended, normoactive bowel sounds, no guarding, no rebound, no hepatosplenomegaly, no masses. EXTREMITIES: 2+ pulses, warm, well-perfused, no edema. Laboratory Results - last 24 hr 03/22/20 03/23/20 03/23/20 01:14 06:30 06:30 WBC 6.3 RBC 4.56 Hgb 14.1 Hct 41.4 MCV 90.9 MCH 30.9 MCHC 34.0 RDW 13.9 Plt Count 125 L MPV 10.0 Absolute Neuts (auto) 3.9 Neutrophils % 62.1 Lymphocytes % 30.3 D Monocytes % 7.0 Eosinophils % 0.1 Basophils % 0.5 Nucleated RBC % 0 D-Dimer Sodium 138 Potassium 3.7 Chloride 103 Carbon Dioxide 27 Anion Gap 8 BUN 11.6 Creatinine 1.0 Est GFR (CKD-EPI)AfAm 107.12 Est GFR (CKD-EPI)NonAf 92.42 Random Glucose 86 Calcium 8.6 Ferritin 283.1 Total Bilirubin 0.6 AST 26 ALT 36 Alkaline Phosphatase 47 LD Total 190 C-Reactive Protein 3.4 H Total Protein 6.7 Albumin 3.3 L COVID-19 ([facility]ORIS) Detected H 03/23/20 06:30 WBC RBC Hgb Hct MCV MCH MCHC RDW Plt Count MPV Absolute Neuts (auto) Neutrophils % Lymphocytes % Monocytes % Eosinophils % Basophils % Nucleated RBC % D-Dimer 607 H Sodium Potassium Chloride Carbon Dioxide Anion Gap BUN Creatinine Est GFR (CKD-EPI)AfAm Est GFR (CKD-EPI)NonAf Random Glucose Calcium Ferritin Total Bilirubin AST ALT Alkaline Phosphatase LD Total C-Reactive Protein Total Protein Albumin COVID-19 ([facility]) Active Medications Generic Name Dose Route Start Last Admin Trade Name Freq PRN Reason Stop Dose Admin Acetaminophen 650 mg 03/22/20 17:58 03/23/20 02:33 Tylenol - PO 650 mg Q6H PRN Administration FEVER Amlodipine Besylate 5 mg 03/23/20 10:00 Norvasc - PO DAILY ARLYN Enoxaparin Sodium 90 mg 03/22/20 22:00 03/22/20 22:33 Lovenox - SQ 90 mg BID ARLYN Administration Ceftriaxone Sodium 1 gm/ 50 mls @ 100 mls/hr 03/22/20 23:00 03/22/20 22:32 Dextrose IVPB 100 mls/hr Q24H ARLYN Administration Azithromycin 250 mg/ Dextrose 250 mls @ 250 mls/hr 03/22/20 22:00 03/22/20 22:33 IVPB 03/25/20 22:59 250 mls/hr Q24H ARLYN Administration Methylprednisolone Sodium Succinate 40 mg 03/23/20 09:00 Solu-Medrol - IVPUSH BIDLASIX ARLYN ASSESSMENT/PLAN: Mr. Shirley is a 44M w a h/o recent exposure to COVID in recent trip to [place], asthma and htn reporting to the hospital for fever, fatigue, and dry cough admitted for suspected and later confirmed case of COVID-19. #Sepsis secondary to COVID-19 - COVID test confirmed COVID - CT scan reveals peripheral patchy ground class opacities - will cover patient with COVID treatment - Vit C/D/zinc - Proven benefit with theraputic AC full dose AC with eliquis in patients with COVID 19 given hypercoagulable state - as per pulm - low threshold for steroids, plasma, remdesivir will consider giving patient if symptoms worsen - as per pulm - we will start to monitor Inflammatory markers #Asthma -As per pulm - patient on albuterol MDI - Will closely monitor O2 saturation levels on ambient air #H/o HTN - cont Norvasc DVT ppx - will start patient on eliquis #FEN - Monitor lytes - sodium controlled diet #Dispo - HLOC #Advanced Directive - Full code Visit type - Emergency Visit Emergency Visit: Yes ED Registration Date: 03/22/20 Care time: The patient presented to the Emergency Department on the above date and was hospitalized for further evaluation of their emergent condition. - New Patient This patient is new to me today: Yes Date on this admission: 03/23/20 - Critical Care Critical Care patient: No - Discharge Referral Referred to [facility] Med P.C.: No ATTENDING PHYSICIAN STATEMENT I saw and evaluated the patient. I reviewed the resident's note and discussed the case with the resident. I agree with the resident's findings and plan as documented. SUBJECTIVE: OBJECTIVE: ASSESSMENT AND PLAN:
[2020-03-23] MEDS ORDERED: CEFTRIAXONE 1 GM in DEXTROSE 5%-WATER - 50 ML IVPB ONE (10:00)
[2020-03-23] MEDS ORDERED: AZITHROMYCIN IVPB 250 MG in DEXTROSE 5%-WATER - 250 ML IVPB SCH (10:00)
[2020-03-23] MEDS: methylPREDNISolone NA SUCC 40 MG/1 ML VIAL IVPUSH SCH ×2 (11:10→15:37)
[2020-03-23] MEDS: amLODIPine BESYLATE 5 MG TABLET (FP) PO SCH (11:10)
[2020-03-23] MEDS: ENOXAPARIN NA (PORCINE) 40 MG/0.4 ML DISP.SYRIN SQ SCH (11:10)
[2020-03-23] MEDS ORDERED: ENOXAPARIN NA (PORCINE) 60 MG/0.6 ML DISP.SYRIN SQ SCH (11:29)
--- NOTE | 2020-03-23 14:33 | EKG ---
Test Reason : Blood Pressure : / mmHG Vent. Rate : 096 BPM Atrial Rate : 096 BPM P-R Int : 182 ms QRS Dur : 084 ms QT Int : 330 ms P-R-T Axes : 032 043 020 degrees QTc Int : 416 ms NORMAL SINUS RHYTHM NORMAL ECG WHEN COMPARED WITH ECG OF 28-JUL-2018 21:51, NO SIGNIFICANT CHANGE WAS FOUND Confirmed by MD EDDY MOYSES ([id number]) on 03/23/2020 2:32:46 PM Referred By: Confirmed By:VALERIO EDDY MD
--- NOTE | 2020-03-23 14:53 | PN ---
Progress Note, Physician History of Present Illness: pulmonary alert,comfortable,oob-chair,o2 sat 93% on ra,+ cough non-productive,mild cp with cough - Current Medication List Current Medications: Active Medications Acetaminophen (Tylenol -) 650 mg PO Q6H PRN PRN Reason: FEVER Last Admin: 03/23/20 02:33 Dose: 650 mg Documented by: Amlodipine Besylate (Norvasc -) 5 mg PO DAILY [facility] Last Admin: 03/23/20 11:10 Dose: 5 mg Documented by: Enoxaparin Sodium (Lovenox -) 90 mg SQ BID [facility] Ceftriaxone Sodium 1 gm/ (Dextrose) 50 mls @ 100 mls/hr IVPB Q24H [facility] Last Admin: 03/22/20 22:32 Dose: 100 mls/hr Documented by: Azithromycin 250 mg/ Dextrose 250 mls @ 250 mls/hr IVPB Q24H [facility] Stop: 03/25/20 22:59 Last Admin: 03/22/20 22:33 Dose: 250 mls/hr Documented by: Methylprednisolone Sodium Succinate (Solu-Medrol -) 40 mg IVPUSH BIDLASIX [facility] Last Admin: 03/23/20 11:10 Dose: 40 mg Documented by: - Objective Vital Signs: Vital Signs Temperature 99.5 F 03/23/20 14:40 Pulse Rate 92 H 03/23/20 14:40 Respiratory Rate 18 03/23/20 14:40 Blood Pressure 134/91 03/23/20 14:40 O2 Sat by Pulse Oximetry (%) 93 L 03/23/20 14:40 Constitutional: Yes: Well Nourished, Calm Eyes: Yes: WNL HENT: Yes: WNL Neck: Yes: WNL Cardiovascular: Yes: Regular Rate and Rhythm, S1, S2 Respiratory: Yes: Rales (gus scattered rackles) Gastrointestinal: Yes: Normal Bowel Sounds, Soft Extremities: Yes: WNL Edema: No Labs: CBC, BMP 03/23/20 06:30 03/23/20 06:30 INR, PTT INR 1.10 (0.83-1.09) H 03/22/20 01:15 Laboratory Tests 03/23/20 03/23/20 06:30 06:30 D-Dimer 607 H Ferritin 283.1 C-Reactive Protein 3.4 H - ....Imaging Cat Scan: Report Reviewed, Image Reviewed ( bilateral groung glass infiltrates) Assessment/Plan Problem List - Problems (1) Pneumonia due to COVID-19 virus Code(s): U07.1 - COVID-19; J12.89 - OTHER VIRAL PNEUMONIA (2) Chest pain, atypical Code(s): R07.89 - OTHER CHEST PAIN Assessment/Plan PLAN: Monitor Inflammatory markers VTE prophylaxis Can use albuterol MDI PRN steroids Rand AZUL
[2020-03-23] MEDS ORDERED: ALBUTEROL SO4 HFA INHALER IH PRN (15:45)
--- NOTE | 2020-03-23 16:34 | PN ---
Teaching Attending Note Name of Resident: Sánchez Maldonado ATTENDING PHYSICIAN STATEMENT I saw and evaluated the patient. I reviewed the resident's note and discussed the case with the resident. I agree with the resident's findings and plan as documented. SUBJECTIVE: Patient is c/o having cough , no fever or chills. OBJECTIVE: Vital Signs Temperature 99.5 F 03/23/20 14:40 Pulse Rate 92 H 03/23/20 14:40 Respiratory Rate 18 03/23/20 14:40 Blood Pressure 134/91 03/23/20 14:40 O2 Sat by Pulse Oximetry (%) 93 L 03/23/20 14:40 PE: per resident's note CBCD WBC 6.3 K/mm3 (4.0-10.0) 03/23/20 06:30 RBC 4.56 M/mm3 (4.00-5.60) 03/23/20 06:30 Hgb 14.1 GM/dL (11.7-16.9) 03/23/20 06:30 Hct 41.4 % (35.4-49) 03/23/20 06:30 MCV 90.9 fl (80-96) 03/23/20 06:30 MCHC 34.0 g/dl (32.0-35.9) 03/23/20 06:30 RDW 13.9 % (11.9-15.9) 03/23/20 06:30 Plt Count 125 K/MM3 (134-434) L 03/23/20 06:30 MPV 10.0 fl (7.5-11.1) 03/23/20 06:30 CMP Sodium 138 mmol/L (136-145) 03/23/20 06:30 Potassium 3.7 mmol/L (3.5-5.1) 03/23/20 06:30 Chloride 103 mmol/L (98-107) 03/23/20 06:30 Carbon Dioxide 27 mmol/L (21-32) 03/23/20 06:30 Anion Gap 8 MMOL/L (8-16) 03/23/20 06:30 BUN 11.6 mg/dL (7-18) 03/23/20 06:30 Creatinine 1.0 mg/dL (0.55-1.3) 03/23/20 06:30 Random Glucose 86 mg/dL (74-106) 03/23/20 06:30 Calcium 8.6 mg/dL (8.5-10.1) 03/23/20 06:30 Total Bilirubin 0.6 mg/dL (0.2-1) 03/23/20 06:30 AST 26 U/L (15-37) 03/23/20 06:30 ALT 36 U/L (13-61) 03/23/20 06:30 Alkaline Phosphatase 47 U/L (45-117) 03/23/20 06:30 Total Protein 6.7 g/dl (6.4-8.2) 03/23/20 06:30 Albumin 3.3 g/dl (3.4-5.0) L 03/23/20 06:30 CARDIAC ENZYMES Creatine Kinase 63 U/L (26-308) 03/22/20 01:14 Troponin I < 0.02 ng/ml (0.00-0.05) 03/22/20 01:14 Current Medications Generic Name Dose Route Start Last Admin Trade Name Lamonteq PRN Reason Stop Dose Admin Acetaminophen 650 mg 03/22/20 17:58 03/23/20 02:33 Tylenol - PO 650 mg Q6H PRN Administration FEVER Albuterol Sulfate 2 puff 03/23/20 15:45 Ventolin Hfa Inhaler - IH Q4H PRN SHORT OF BREATH/WHEEZING Amlodipine Besylate 5 mg 03/23/20 10:00 03/23/20 11:10 Norvasc - PO 5 mg DAILY ARLYN Administration Ascorbic Acid 500 mg 03/23/20 16:00 Vitamin C - PO DAILY [facility] Cholecalciferol 1,000 unit 03/23/20 16:00 Vitamin D3 - PO DAILY [facility] Enoxaparin Sodium 90 mg 03/23/20 12:58 Lovenox - SQ BID ARLYN Ceftriaxone Sodium 1 gm/ 50 mls @ 100 mls/hr 03/22/20 23:00 03/22/20 22:32 Dextrose IVPB 100 mls/hr Q24H ARLYN Administration Azithromycin 250 mg/ Dextrose 250 mls @ 250 mls/hr 03/22/20 22:00 03/22/20 22:33 IVPB 03/25/20 22:59 250 mls/hr Q24H ARLYN Administration Methylprednisolone Sodium Succinate 40 mg 03/23/20 09:00 10/20/20 15:37 Solu-Medrol - IVPUSH 40 mg BIDLASIX ARLYN Administration Zinc Sulfate 220 mg 03/23/20 22:00 Orazinc - PO BID [facility] Home Medications Medication Instructions Recorded Amlodipine Besylate 10 mg PO DAILY 07/26/18 CT of the chest: peripheral bl patchy groundglass airspace opacities are highly suggestive of covid infection. + Covid pneumonitis. ASSESSMENT AND PLAN: This patient is 44yom with pmhx of Asthma and HTN with recent exposure to COVID patient who presented with cough, fever , and fatigue # Covid Pneumonitis: on Rocephin/zithromax, trade the markers, on Lovenox/steroid ,pulmonary on the case continue, # H/o HTN: cont Norvasc # H//o Asthma , not active . if needed give inhalers not Nebs awaiting covid results DVT PX : cont lovenox
[2020-03-23] MEDS: CHOLECALCIFEROL (VIT D3) 1,000 UNIT (25 MCG) TABLET PO SCH (17:18)
[2020-03-23] MEDS: ASCORBIC ACID 500 MG TABLET (FP) PO SCH (17:18)
[2020-03-23] MEDS ORDERED: DEXTROSE 5%-WATER - 50 ML IVPB ONE (22:37)
[2020-03-23] MEDS ORDERED: cefTRIAXone SODIUM 1 GM VIAL ONE (22:37)
[2020-03-23] MEDS: ENOXAPARIN NA (PORCINE) 100 MG/1 ML DISP.SYRIN SQ SCH (22:45)
[2020-03-23] MEDS: CEFTRIAXONE 1 GM in DEXTROSE 5%-WATER - 50 ML IVPB SCH (22:45)
[2020-03-23] MEDS: ZINC SULFATE 220 MG CAPSULE (FP) PO SCH (22:45)
[2020-03-23] MEDS: AZITHROMYCIN IVPB 250 MG in DEXTROSE 5%-WATER - 250 ML IVPB SCH (22:46)
[2020-03-24] MEDS: methylPREDNISolone NA SUCC 40 MG/1 ML VIAL IVPUSH SCH ×2 (06:54→15:08)
[2020-03-24 08:30] LABS: ALBUMIN 3.2 g/dl (3.4-5.0); BLOOD UREA NITROGEN 11.5 mg/dL (7-18); CALCIUM 9.1 mg/dL (8.5-10.1)
[2020-03-24 08:31] LABS: MAGNESIUM 2.4 mg/dL (1.8-2.4)
[2020-03-24 08:33] LABS: PHOSPHOROUS 4.7 mg/dL (2.5-4.9)
[2020-03-24 08:34] LABS: BILIRUBIN,TOTAL 0.5 mg/dL (0.2-1); CREATININE 0.9 mg/dL (0.55-1.3)
[2020-03-24 08:35] LABS: TOT PROT 6.8 g/dl (6.4-8.2)
[2020-03-24 08:37] LABS: HEMATOCRIT 42.1 % (35.4-49); HEMOGLOBIN 14.1 GM/dL (11.7-16.9); MCH 30.3 pg (25.7-33.7); MCHC 33.5 g/dl (32.0-35.9); MEAN CELL VOLUME 90.6 fl (80-96); MEAN PLT VOLUME 9.8 fl (7.5-11.1); PLATELET COUNT 136 K/MM3 (134-434); RBC 4.65 M/mm3 (4.00-5.60); RDW 13.7 % (11.9-15.9); WHITE BLOOD COUNT 7.3 K/mm3 (4.0-10.0)
--- NOTE | 2020-03-24 09:51 | PN ---
Teaching Attending Note Name of Resident: Sánchez Maldonado ATTENDING PHYSICIAN STATEMENT I saw and evaluated the patient. I reviewed the resident's note and discussed the case with the resident. I agree with the resident's findings and plan as documented. SUBJECTIVE: Patient is feeling better with NAD, saturating well on RA OBJECTIVE: Vital Signs Temperature 98.4 F 03/24/20 05:21 Pulse Rate 73 03/24/20 05:21 Respiratory Rate 20 03/24/20 07:00 Blood Pressure 109/65 03/24/20 05:21 O2 Sat by Pulse Oximetry (%) 96 03/24/20 07:00 PE; per resident's note CBCD WBC 7.3 K/mm3 (4.0-10.0) 03/24/20 07:50 RBC 4.65 M/mm3 (4.00-5.60) 03/24/20 07:50 Hgb 14.1 GM/dL (11.7-16.9) 03/24/20 07:50 Hct 42.1 % (35.4-49) 03/24/20 07:50 MCV 90.6 fl (80-96) 03/24/20 07:50 MCHC 33.5 g/dl (32.0-35.9) 03/24/20 07:50 RDW 13.7 % (11.9-15.9) 03/24/20 07:50 Plt Count 136 K/MM3 (134-434) 03/24/20 07:50 MPV 9.8 fl (7.5-11.1) 03/24/20 07:50 CMP Sodium 138 mmol/L (136-145) 03/24/20 07:50 Potassium 4.0 mmol/L (3.5-5.1) 03/24/20 07:50 Chloride 106 mmol/L (98-107) 03/24/20 07:50 Carbon Dioxide 25 mmol/L (21-32) 03/24/20 07:50 Anion Gap 8 MMOL/L (8-16) 03/24/20 07:50 BUN 11.5 mg/dL (7-18) 03/24/20 07:50 Creatinine 0.9 mg/dL (0.55-1.3) 03/24/20 07:50 Random Glucose 124 mg/dL (74-106) H 03/24/20 07:50 Calcium 9.1 mg/dL (8.5-10.1) 03/24/20 07:50 Total Bilirubin 0.5 mg/dL (0.2-1) 03/24/20 07:50 AST 25 U/L (15-37) 03/24/20 07:50 ALT 37 U/L (13-61) 03/24/20 07:50 Alkaline Phosphatase 46 U/L (45-117) 03/24/20 07:50 Total Protein 6.8 g/dl (6.4-8.2) 03/24/20 07:50 Albumin 3.2 g/dl (3.4-5.0) L 03/24/20 07:50 CARDIAC ENZYMES Creatine Kinase 63 U/L (26-308) 03/22/20 01:14 Troponin I < 0.02 ng/ml (0.00-0.05) 03/22/20 01:14 Current Medications Generic Name Dose Route Start Last Admin Trade Name Freq PRN Reason Stop Dose Admin Acetaminophen 650 mg 03/22/20 17:58 03/23/20 02:33 Tylenol - PO 650 mg Q6H PRN Administration FEVER Albuterol Sulfate 2 puff 03/23/20 15:45 Ventolin Hfa Inhaler - IH Q4H PRN SHORT OF BREATH/WHEEZING Amlodipine Besylate 5 mg 03/23/20 10:00 03/23/20 11:10 Norvasc - PO 5 mg DAILY ARLYN Administration Ascorbic Acid 500 mg 03/23/20 16:00 03/23/20 17:18 Vitamin C - PO 500 mg DAILY ARLYN Administration Cholecalciferol 1,000 unit 03/23/20 16:00 03/23/20 17:18 Vitamin D3 - PO 1,000 unit DAILY ARLYN Administration Enoxaparin Sodium 90 mg 03/23/20 12:58 03/23/20 22:45 Lovenox - SQ 90 mg BID ARLYN Administration Ceftriaxone Sodium 1 gm/ 50 mls @ 100 mls/hr 03/22/20 23:00 03/23/20 22:45 Dextrose IVPB 100 mls/hr Q24H ARLYN Administration Azithromycin 250 mg/ Dextrose 250 mls @ 250 mls/hr 03/22/20 22:00 03/23/20 22:46 IVPB 03/25/20 22:59 250 mls/hr Q24H ARLYN Administration Methylprednisolone Sodium Succinate 40 mg 03/23/20 09:00 03/24/20 06:54 Solu-Medrol - IVPUSH 40 mg BIDLASIX ARLYN Administration Zinc Sulfate 220 mg 03/23/20 22:00 03/23/20 22:45 Orazinc - PO 220 mg BID ARLYN Administration Home Medications Medication Instructions Recorded Amlodipine Besylate 10 mg PO DAILY 07/26/18 CT of the chest: peripheral bl patchy groundglass airspace opacities are highly suggestive of covid infection. + Covid pneumonitis. ASSESSMENT AND PLAN: This patient is 44yom with pmhx of Asthma and HTN with recent exposure to COVID patient who presented with cough, fever , and fatigue # Covid Pneumonitis: on Rocephin/zithromax, trade the markers, on Lovenox/steroid ,f/u iwth pulmonary , will dc him on 4 more days of steroid and 2 weeks of eliquis # H/o HTN: cont Norvasc # H//o Asthma , not active . DVT PX : cont lovenox dc patient home
[2020-03-24] MEDS: amLODIPine BESYLATE 5 MG TABLET (FP) PO SCH (10:45)
[2020-03-24] MEDS: CHOLECALCIFEROL (VIT D3) 1,000 UNIT (25 MCG) TABLET PO SCH (10:45)
[2020-03-24] MEDS: ZINC SULFATE 220 MG CAPSULE (FP) PO SCH (10:45)
[2020-03-24] MEDS: ENOXAPARIN NA (PORCINE) 100 MG/1 ML DISP.SYRIN SQ SCH (10:45)
[2020-03-24] MEDS: ASCORBIC ACID 500 MG TABLET (FP) PO SCH (10:45)
--- NOTE | 2020-03-24 14:25 | PN ---
Progress Note (short form) - Note Progress Note: PULMONARY Feeling better. Less cough and shortness of breath. No fevers. Vital Signs Period Temp Pulse Resp BP Sys/Aguilar Pulse Ox Last 24 Hr 98.4 F-99.5 F 73-93 18-20 109-134/64-91 93-96 Gen: NAD at rest Heart: RRR Lung: decreased breath sounds at the bases Abd: soft, nontender Ext: no edema CBC, BMP 03/24/20 07:50 03/24/20 07:50 Active Medications Acetaminophen (Tylenol -) 650 mg PO Q6H PRN PRN Reason: FEVER Last Admin: 03/23/20 02:33 Dose: 650 mg Documented by: Albuterol Sulfate (Ventolin Hfa Inhaler -) 2 puff IH Q4H PRN PRN Reason: SHORT OF BREATH/WHEEZING Amlodipine Besylate (Norvasc -) 5 mg PO DAILY [facility] Last Admin: 03/24/20 10:45 Dose: 5 mg Documented by: Ascorbic Acid (Vitamin C -) 500 mg PO DAILY [facility] Last Admin: 03/24/20 10:45 Dose: 500 mg Documented by: Cholecalciferol (Vitamin D3 -) 1,000 unit PO DAILY [facility] Last Admin: 03/24/20 10:45 Dose: 1,000 unit Documented by: Enoxaparin Sodium (Lovenox -) 90 mg SQ BID [facility] Last Admin: 03/24/20 10:45 Dose: 90 mg Documented by: Ceftriaxone Sodium 1 gm/ (Dextrose) 50 mls @ 100 mls/hr IVPB Q24H [facility] Last Admin: 03/23/20 22:45 Dose: 100 mls/hr Documented by: Azithromycin 250 mg/ Dextrose 250 mls @ 250 mls/hr IVPB Q24H [facility] Stop: 03/25/20 22:59 Last Admin: 03/23/20 22:46 Dose: 250 mls/hr Documented by: Methylprednisolone Sodium Succinate (Solu-Medrol -) 40 mg IVPUSH BIDLASIX [facility] Last Admin: 03/24/20 06:54 Dose: 40 mg Documented by: Zinc Sulfate (Orazinc -) 220 mg PO BID [facility] Last Admin: 03/24/20 10:45 Dose: 220 mg Documented by: A/P COVID19 Pneumonitis Atypical Chest Pain - can change steroids to PO prednisone 40mg daily and complete 10 day course - can d/c home from pulmonary standpoint
[2020-03-24 14:31] VITALS: BP 127/81; PULSE 82; TEMP 98
--- NOTE | 2020-03-24 15:01 | DS ---
Physical Exam: SUBJECTIVE: Patient seen and examined sitting up in his chair at bedside. Patient endorses feeling much better and kindly expresses his wishes to go home. OBJECTIVE: Vital Signs Period Temp Pulse Resp BP Sys/Aguilar Pulse Ox Last 24 Hr 98.0 F-98.7 F 73-93 18-20 109-133/64-83 95-97 PHYSICAL EXAM GENERAL: The patient is awake, alert, and fully oriented, in no acute distress. LUNGS: Breath sounds equal, clear to auscultation bilaterally, no wheezes, no crackles, no accessory muscle use. HEART: Regular rate and rhythm, S1, S2 without murmur, rub or gallop. ABDOMEN: Soft, nontender, nondistended, normoactive bowel sounds, no guarding, no rebound, no hepatosplenomegaly, no masses. EXTREMITIES: 2+ pulses, warm, well-perfused, no edema. LABS Laboratory Results - last 24 hr 03/23/20 03/24/20 03/24/20 17:15 07:50 07:50 WBC RBC Hgb Hct MCV MCH MCHC RDW Plt Count MPV ESR 8 D-Dimer 310 Sodium 138 Potassium 4.0 Chloride 106 Carbon Dioxide 25 Anion Gap 8 BUN 11.5 Creatinine 0.9 Est GFR (CKD-EPI)AfAm 121.67 Est GFR (CKD-EPI)NonAf 104.98 Random Glucose 124 H Calcium 9.1 Phosphorus 4.7 Magnesium 2.4 Ferritin 338.3 Total Bilirubin 0.5 AST 25 ALT 37 Alkaline Phosphatase 46 LD Total 194 C-Reactive Protein 2.2 H Total Protein 6.8 Albumin 3.2 L 03/24/20 07:50 WBC 7.3 RBC 4.65 Hgb 14.1 Hct 42.1 MCV 90.6 MCH 30.3 MCHC 33.5 RDW 13.7 Plt Count 136 MPV 9.8 ESR D-Dimer Sodium Potassium Chloride Carbon Dioxide Anion Gap BUN Creatinine Est GFR (CKD-EPI)AfAm Est GFR (CKD-EPI)NonAf Random Glucose Calcium Phosphorus Magnesium Ferritin Total Bilirubin AST ALT Alkaline Phosphatase LD Total C-Reactive Protein Total Protein Albumin HOSPITAL COURSE: Date of Admission:03/22/20 Darlin is a 44 yo with PMH hypertension and asthma who presented to the hospital for fever, dyspnea and body aches of 1 week in duration. Patient was found to have bilateral ground glass opacities on chest CT with CXR notable for possible multilobar pneumonia on the R side, with possible consolidation on the L side as well. Labs notable for elevated d-dimer to 1086 and elevated CRP 2.7. Influenza A and B negative and patient found to be COVID-19 positive. Patient placed on isolation precautions and evaluated by pulm. Patient was placed on 40mg methylprednisolone BID, vit c/d, zinc, azithromycin, and rocephin. Patient was hemodynamically stable and O2 saturation was wnl on room air. Patient was medically cleared for discharge and will be continuing home anticoagulation (Eliquis) and steroids. Patient agrees to follow up with his primary care physician 2 weeks after discharge and will appropriately quarentine for 2 weeks and until symptoms resolve. Date of Discharge: 03/24/20 Minutes to complete discharge: 40 Discharge Summary Problems reviewed: Yes Reason For Visit: PNEUMONIA Condition: Good - Instructions Diet, Activity, Other Instructions: YOUR VISIT: You were admitted to the hospital for a fever, trouble breathing and body aches. While you were in the hospital, we evaluated you with lab work, blood work, and imaging including a X-ray and CT scan of your chest which was suspicious of COVID. We gave you a COVID test for which you were found to be positive and you were admitted for treatment. You were evaluated by our pulmonology specialist Dr. Ye Katz during your hospital course. You were treated with antibiotics, fluids, steroids, vitamins and minerals. You responded well to treatment and you were medically cleared for discharge. You will need to follow up with your primary care physician to follow up on your recovery. MEDICATIONS: Please START taking prednisone 40 mg by mouth once daily with food for 3 more days after you leave. Each pill is 20 mg so take 2 pills each day for 3 days. Please START taking ELIQUIS 5 mg by mouth twice daily for 14 days. Please START taking supplemental VITAMIN C 500mg every day Please START taking supplemental VITAMIN D 1000mg every day Please START taking supplemental ZINC 220 mg by mouth twice daily. Continue to take all other home medications as prescribed. FOLLOW UPS: Please follow up with your network architect (Dr. Katz) within 1 week after discharge Please visit your primary care provider within 2 weeks (Dr. Duke Rowley) ADDITIONAL INSTRUCTIONS: You are being discharged to your home. Please appropriately quarantine for 2 weeks as to avoid any potential spread. Please remember to wear your mask when visiting your primary care physician. Please return to the Emergency department if you are experiencing worsening or concerning symptoms. Referrals: Ye Katz MD [Staff Physician] - 1 Week (covid) Duke Rowley [Primary Care Provider] - 2 Weeks (covid admission) Disposition: HOME - Home Medications Comprehensive Discharge Medication List: Ambulatory Orders Amlodipine Besylate 10 mg PO DAILY 07/26/18 Apixaban [Eliquis] 5 mg PO BID 14 Days #28 tablet 03/24/20 Ascorbic Acid [Vitamin C -] 500 mg PO DAILY #30 tablet 03/24/20 Cholecalciferol (Vitamin D3) [Vitamin D3 -] 1,000 unit PO DAILY 30 Days #30 tab 03/24/20 Zinc Sulfate [Orazinc -] 220 mg PO BID 30 Days #60 capsule 03/24/20 predniSONE [Deltasone -] 20 mg PO DAILY 3 Days #6 tablet 03/24/20 This patient is new to me today: No Emergency Visit: Yes ED Registration Date: 03/22/20 Care time: The patient presented to the Emergency Department on the above date and was hospitalized for further evaluation of their emergent condition. Critical Care patient: No - Discharge Referral Referred to [facility] No ATTENDING PHYSICIAN STATEMENT I saw and evaluated the patient. I reviewed the resident's note and discussed the case with the resident. I agree with the resident's findings and plan as documented. SUBJECTIVE: OBJECTIVE: ASSESSMENT AND PLAN:
== END 2020-03-24 17:56 | disposition home or self-care (01) | DRG 137 ==
LOC: JER 00:16 → JERBED 02:40 → J8W 16:06
PROVIDERS: ADMIT Hospitalist; ATTEND Internal Medicine
DX: U07.1 COVID-19 (principal); J12.89 Other viral pneumonia; H55.00 Unspecified nystagmus; R50.9 Fever, unspecified; I10 Essential (primary) hypertension; J45.909 Unspecified asthma, uncomplicated; R07.89 Other chest pain; R00.0 Tachycardia, unspecified
CPT/HCPCS: 36415; 71045-TC-FY; 71250-TC; 80053; 81003; 82550; 82728; 83605; 83615; 83735; 84100; 84484; 85025; 85027; 85379; 85610; 85651; 85730; 86140; 87040; 87086; 87804; 87899; 93005; 93010; 99285-25; C9803; J0131; U0003

== ENCOUNTER 2022-11-05 16:35 | Emergency (ER) | payer OTHER ==
[2022-11-05 16:43] VITALS: TEMP 98.3; BMI 31.0
[2022-11-05] MEDS ORDERED: ACETAMINOPHEN 1000 MG/100 ML BAG IVPB ONE (17:30)
[2022-11-05] MEDS ORDERED: ACETAMINOPHEN INJECTION 100 ML IVPB ONE (17:34)
[2022-11-05 17:47] LABS: BASO % 0.7 % (0-2.0); EOS % 1.4 % (0-4.5); HEMATOCRIT 41.8 % (35.4-49); HEMOGLOBIN 14.5 GM/dL (11.7-16.9); LYMPH % 29.8 % (8-40); MCHC 34.7 g/dl (32.0-35.9); MEAN CELL VOLUME 89.3 fl (80-96); MEAN PLT VOLUME 8.2 fl (7.5-11.1); NEUT % 60.1 % (42.8-82.8); PLATELET COUNT 218 10^3/uL (134-434); RBC 4.68 M/mm3 (4.00-5.60); RDW 14.4 % (11.9-15.9); WHITE BLOOD COUNT 9.4 K/mm3 (4.0-10.0)
[2022-11-05 18:12] LABS: POTASSIUM 3.8 mmol/L (3.5-5.1)
[2022-11-05 18:14] LABS: ALBUMIN 3.8 g/dl (3.4-5.0); BLOOD UREA NITROGEN 11.9 mg/dL (7-18); MAGNESIUM 2.1 mg/dL (1.8-2.4)
[2022-11-05 18:18] LABS: BILIRUBIN,TOTAL 0.3 mg/dL (0.2-1)
[2022-11-05 19:18] VITALS: BP 134/76; PULSE 58; RESP 16
== END 2022-11-05 19:18 | disposition home or self-care (01) ==
LOC: JER 16:35
PROC: 3E033NZ Introduction of Analgesics, Hypnotics, Sedatives into Peripheral Vein, Percutaneous Approach (ICD-10-PCS; principal; 2022-11-05)
DX: I10 Essential (primary) hypertension (principal); M79.602 Pain in left arm
CPT/HCPCS: 36415; 71045-TC-FY; 80053; 83735; 84484; 85025; 93005; 93010; 99285-25